=== PATIENT | male | born 1995 | race Caucasian/White ===

== ENCOUNTER 2016-11-20 08:45 | Inpatient (IN) | payer OTHER ==
[~2016-11-20] VITALS: Ht 182.9 cm; Wt 72.6 kg
--- NOTE | 2016-11-20 16:16 | NUR ---
pre-assessment: assessed pt in intake office pt is in acute withdrawal, pt's V/S WNL. Pt is able to give consent and verbalized understanding of unit protocols and procedures.
[2016-11-20] MEDS ORDERED: ONDANSETRON 4 MG/2 ML VIAL IM PRN (16:30)
[2016-11-20] MEDS ORDERED: LOPERAMIDE HCL 2 MG CAPSULE PO PRN ×2 (16:30)
[2016-11-20] MEDS ORDERED: LORAZEPAM 2 MG/1 ML VIAL IM PRN (16:30)
[2016-11-20] MEDS ORDERED: METHOCARBAMOL 750 MG TABLET PO PRN (16:30)
[2016-11-20] MEDS ORDERED: ONDANSETRON ODT 4 MG TAB.RAPDIS SL PRN (16:30)
[2016-11-20] MEDS ORDERED: MAG HYDROX/AL HYDROX/SIMETH 30 ML LIQUID UDC PO PRN (16:30)
[2016-11-20] MEDS ORDERED: ACETAMINOPHEN 325 MG TABLET PO PRN (16:30)
[2016-11-20] MEDS ORDERED: MIRALAX 17 GM POWD.PACK PO PRN (16:30)
[2016-11-20] MEDS ORDERED: THIAMINE HCL 200 MG/2 ML VIAL IM ONE (16:30)
[2016-11-20] MEDS ORDERED: LORAZEPAM 1 MG TABLET PO PRN ×2 (16:30)
[2016-11-20] MEDS ORDERED: diphenhydrAMINE 50 MG CAPSULE PO PRN (16:30)
[2016-11-20] MEDS ORDERED: DICYCLOMINE HCL 20 MG TABLET PO PRN (16:30)
[2016-11-20] MEDS ORDERED: MAGNESIUM HYDROXIDE 30 ML LIQUID UDC PO PRN (16:30)
[2016-11-20] MEDS ORDERED: BUPRENORPHINE HCL 2 MG TAB.SUBL SL PRN (16:30)
--- NOTE | 2016-11-20 16:30 | NUR ---
admission note: Pt is a 21 yo male who arrived on the [facility] at 1630 for medically supervised detox. He is A&O x4 and ambulatory with a steady gait. He reports NKA, is full code status, and on a regular diet. pt is mildly withdrawing for opiate and etoh. pt is able to answer all questions appropriately. He appears anxious and fidgety but is cooperative. Vital signs on the unit are B/P 134/73, HR 77, RR 16, O2 sat 96%, and T 96.6, body aches verbalized. Pt is 6 ft and weighs 160. He has a PMH of anxiety,depression and hep C. History of Use 1.) hard alcohol 1/5 of a bottle a day for 3 months . 2.) heroin via IV 1.5 grams a day for 6 months This is the patient's 3rd time in treatment he was at [facility] 1 year ago for 30 days and [facility] 2013 and 2014 for 30 days each time. He smokes 1 pack to half a pack of cigarettes a day. pt verbalized he has no PCP at this time.
[2016-11-20 17:34] LABS: *AMPHETAMINE, URINE NEGATIVE (NEGATIVE); *BARBITURATE, URINE NEGATIVE (NEGATIVE); *CANNABINOID, URINE POSITIVE (NEGATIVE); *COCCAINE, URINE NEGATIVE (NEGATIVE); *OPIATE, URINE POSITIVE (NEGATIVE); *PHENCYCLIDINE SCREEN,URINE NEGATIVE (NEGATIVE)
[2016-11-20 18:00] LABS: BASOPHILS # (AUTO) 0.1 K/uL (0.0-8.0); BASOPHILS % (AUTO) 1.1 % (0.0-2.0); EOSINOPHILS # (AUTO) 0.4 K/uL (0.0-0.7); EOSINOPHILS % (AUTO) 3.8 % (0.0-7.0); HEMATOCRIT 44.4 % (40-50); HEMOGLOBIN 14.7 G/DL (14.0-18.0); LYMPHOCYTES # (AUTO) 3.4 K/UL (0.8-4.8); LYMPHOCYTES % (AUTO) 31.7 % (20.5-51.5); MEAN CORPUSCULAR HEMOGLOBIN 28.3 UUG (27.0-31.0); MEAN CORPUSCULAR HGB CONC 33 g/dL (32.0-37.0); MEAN CORPUSCULAR VOLUME 85.4 FL (82.0-92.0); MONOCYTES # (AUTO) 0.9 K/UL (0.1-1.30); MONOCYTES % (AUTO) 8.2 % (0.0-11.0); NEUTROPHILS # (AUTO) 5.8 K/UL (1.8-8.9); NEUTROPHILS % (AUTO) 55.2 % (38.5-71.5); PLATELET COUNT (AUTO) 231 K/UL (150-450); RED BLOOD CELL COUNT(AUTO) 5.19 MIL/UL (4.7-6.1); WHITE BLOOD COUNT (AUTO) 10.6 K/UL (4.0-11.2)
[2016-11-20 18:25] LABS: ETHANOL < 3 MG/DL (0-0)
[2016-11-20 18:31] LABS: ALANINE AMINOTRANSFERASE 50 U/L (16-63); ALKALINE PHOSPHATASE 115 U/L (50-136); AMYLASE 65 U/L (25-115); ASPARTATE AMINOTRANSFERASE 36 U/L (15-37); BILIRUBIN,TOTAL 0.2 mg/dL (0.2-1.0); CARBON DIOXIDE 34 mmol/L (21-32); CHLORIDE 103 mmol/L (98-107); GLUCOSE 106 mg/dL (74-106); LIPASE 295 U/L (73-393); MAGNESIUM 1.7 mg/dL (1.8-2.4); TOTAL PROTEIN, SERUM 7.1 g/dL (6.4-8.2); UREA NITROGEN, BLOOD 22 mg/dL (7-18)
--- NOTE | 2016-11-20 19:04 | NUR ---
end of shift note: pt is sleeping in bed at this time, pt is admitted to [facility] for opiate and etoh withdrawal/dependence. pts last cows 9 and ciwa 4. offered medications to pt, pt stated he just wanted to sleep. refused b12 injection. endorsed to shift engineer nurse regarding open wound on his hand and that pictured need to be taken d/t pt sleeping. pt's taper will start tomorrow. will endorse pt to shift engineer nurse.
[2016-11-20 20:00] VITALS: BP 134/93
--- NOTE | 2016-11-20 20:00 | NUR ---
1999 Patient received sleeping comfortably. Aroused for vital signs and nurse assess. Patient responds to nurse's greeting and introduction with brief eye contact and flat " Hi, I'm okay. How are you?" Patient is oriented to person, place, day and his personal situation. Reoriented to date and time. Patient's color is tannish-pink and his skin is warm, dry and intact. Patient's overall appearance is disheveled. Numerous, small pink-red, roundish, intact areas noted on bilateral hands with one tiny area area noted open but dry on left pinky knuckle area. Patient denies any pain or other discomforts at this time. Patient states that he has eaten some of his regular diet tray this PM and he is taking various fluids ad anila with no gastric issues thus far. Patient did not attend [facility] tonight. Vital signs are: 98.4-54-16 134/93, O2 Sat 97%, COWS 8, CIWA 5. Patient voices no requests for anything at this time. Patient was admitted today, 11/20/16, for Alcohol and Heroin withdrawal and he will begin a 5-Day Ativan medication taper and a 5-Day Subutex medication taper on 11/21/16 for withdrawal symptoms. Patient is cooperative and verbally appropriate when interacting with nurse, however mood/affect is somewhat withdrawn and flat. Bed is locked and in lowest position, bed rails are up X 2 and call light within patient's easy reach.
[2016-11-20] MEDS: GABAPENTIN 300 MG CAPSULE PO SCH (21:19)
--- NOTE | 2016-11-20 21:19 | NUR ---
PRN MEDICATIONS: Prn Ativan 1 mg p.o. given per c/o 'feeling bad', with skin temperature flashes, shakes, anxiety, CIWA 5 and Prn Benadryl 50 mg p.o. given per request for sleep medication.
[2016-11-20] MEDS: CLONIDINE HCL 0.1 MG TABLET PO PRN (21:20)
--- NOTE | 2016-11-20 21:20 | NUR ---
PRN MEDICATION: Prn Catapres 0.1 mg p.o. given per c/o anxiety and increasing agitation.
--- NOTE | 2016-11-20 22:20 | NUR ---
REASSESSMENT PRN MEDICATIONS: Patient is sleeping soundly with eyes closed and respirations quiet, deep, even, unlabored at 12.
[2016-11-21] VITALS: BP 119/83
[2016-11-21 04:00] VITALS: BP 135/83
--- NOTE | 2016-11-21 06:30 | NUR ---
0630 Patient slept a total of 9.5 hours and he had 1 voids and no stools. Total intake was 650 ml p.o. Prn medications given noted separately per floor protocol. V/SS afebrile, last COWS 2, last CIWA 1 at 0400. Patient is presently sleeping comfortably in stable condition with eyes closed and respirations quiet, even, unlabored at 12.
--- NOTE | 2016-11-21 07:05 | NUR ---
Patient sleeping soundly and not awakened for COWS, CIWA assessment, as assessments to be done Q 4hs while awake per D.O.
--- NOTE | 2016-11-21 07:55 | NUR ---
Start of Shift Environmental Health Safety Engineer received report on 21 year old male pt admitted on 11/20/16 for ETOH and Heroin detoxification. Pt has NKA, is a full code and on a regular diet. Reported PMH of Hep C, anxiety and depression. Pt also reports a history of seizures with last reported seizure one year ago. Pt received Benadryl, Clonidine and Ativan as PRN medications per NOC nurse. Pt has been placed on seizure and fall precautions. Pt placed on 5 day Ativan and 5 day Subutex tapers. Pts last COWS of 2 and CIWA of 1 were recorded at 0400. Environmental Health Safety Engineer encounters pt resting in bed with eyes closed. Respirations are even and unlabored with rise and fall of chest noted. Bed in low position, wheels locked, side rails up x2 and call light within reach. All safety measures in place according to hospital policy.
[2016-11-21 08:54] VITALS: BP 135/95
[2016-11-21] MEDS ORDERED: 5 DAY TAPER OF LORAZEPAM -SERENITY PROTOCOL PO PRN (09:00)
[2016-11-21] MEDS ORDERED: TUBERCULIN,PURIF.PROT.DERIV. 5 TU/0.1 ML TEST ID ONE (09:00)
[2016-11-21] MEDS ORDERED: 5 DAY TAPER BUPRENORPHINE -SERENITY PROTOCOL SL PRN (09:00)
[2016-11-21] MEDS: GABAPENTIN 300 MG CAPSULE PO SCH ×3 (09:02→20:49)
[2016-11-21] MEDS: DOCUSATE SODIUM 250 MG CAPSULE PO SCH (09:02)
[2016-11-21] MEDS: LORAZEPAM 1 MG TABLET PO SCH ×4 (09:02→20:48)
[2016-11-21] MEDS: FOLIC ACID 1 MG TABLET PO SCH (09:02)
[2016-11-21] MEDS: MULTIVITAMINS,THERAPEUTIC TABLET PO SCH (09:02)
[2016-11-21] MEDS: BUPRENORPHINE HCL 2 MG TAB.SUBL SL SCH ×4 (09:03→20:49)
[2016-11-21] MEDS: THIAMINE HCL 100 MG TABLET PO SCH (09:03)
--- NOTE | 2016-11-21 10:10 | NUR ---
Transfer of Care Internet Marketing Analyst provided report to day shift nurse whom is assuming care of pt. Pt is calm and cooperative, stable and able to make his needs known.
--- NOTE | 2016-11-21 10:11 | NUR ---
Received CARE All pertinent information discussed and care received from nurse in charge.
[2016-11-21 12:00] VITALS: BP 127/93
[2016-11-21 16:00] VITALS: BP 113/91
[2016-11-21] MEDS: IBUPROFEN 600 MG TABLET PO PRN (16:04)
--- NOTE | 2016-11-21 16:04 | NUR ---
PRN MOTRIN Pt c/o of tooth aches 07/24, non pharmacological intervention ineffective. Administered PRN Motrin 600mg Po as ordered. Will cont to monitor and reassess.
--- NOTE | 2016-11-21 17:04 | NUR ---
REASSESSMENT Pt reported medication effective, pain decreased to 1/10.
[2016-11-21] MEDS ORDERED: MAGNESIUM OXIDE 400 MG TABLET PO ONE (17:45)
--- NOTE | 2016-11-21 18:18 | NUR ---
MAGNESIUM REPLACED Pt noted with low magnesium level 1.7L, Which was replaced with 400 mg mag-ox as ordered.
[2016-11-21] MEDS: CLONIDINE HCL 0.1 MG TABLET PO PRN (18:30)
--- NOTE | 2016-11-21 18:30 | NUR ---
PRN CLONIDINE Pt c/o of anxiety agitation, sweats. Administered PRN Clonidine 0.1 mg Po as ordered. Will cont to monitor and reassess.
--- NOTE | 2016-11-21 19:06 | NUR ---
END OF SHIFT NOTE Endorsed Pt to night shift supervisor nurse. Patient is AOX4. 21 year old male pt admitted on 11/20/16 for ETOH and Heroin detoxification. Pt has NKA, is a full code and on a regular diet. Pt reported PMH of Hep C,anxiety and depression. Pt also reports a history of seizures with last reported seizure one year ago. Pt received PRN Motrin/Clonidine effective. Vital signs remained stable. Pt remained compliant with plan of care. Patient encouraged to attend group therapies/sessions to learn new coping skills to prevent relapse, patient denies SI/HI. Pt remained compliant with plan of care. Fall and seizure precautions observed at all times, all needs met and rendered, Safety measures in place. Call light kept within reach. Patient endorsed to night shift supervisor nurse, all pertinent information discussed. Patient endorsed to night shift supervisor nurse in stable condition.
--- NOTE | 2016-11-21 19:21 | NUR ---
REASSESSMENT Pt reported medication effective anxiety/agitation subside and sweats decreased.
[2016-11-21 20:00] VITALS: BP 129/85
--- NOTE | 2016-11-21 20:00 | NUR ---
1999 Patient was received awake, alert and just [id number]. Gait is steady, brisk. Patient is oriented to person, place, day, date, time and personal situation. Patient's color is pink and his skin is warm, dry and intact. Patient denies any pain or other discomforts and he voices no requests for anything at this time. Patient states that he is eating his regular diet trays and taking various fluids ad anila with no gastric issues. Patient states further that he has started attending [employer] groups today. Vital signs are: 98.1-92-20 129/85, O2 Sat 99%, COWS 8 CIWA 7 . Patient was admitted on 11/20/16 for Alcohol and Heroin withdrawal and he has been started on a 5-Day Ativan medication taper and a 5-Day Subutex medication taper today, 11/21/16, both of which he is tolerating well so far. Patient is cooperative and verbally appropriate when interacting with nurse, though mood/affect both slightly anxious and flat at the same time. Bed is locked and in lowest position, bed rails are up X 1 and call light within patient's easy reach.
[2016-11-21] MEDS: MIRTAZAPINE 15 MG TABLET PO SCH (20:49)
[2016-11-22] VITALS (7 sets, daily range): BP systolic 109–140; BP diastolic 66–92
--- NOTE | 2016-11-22 06:30 | NUR ---
0630 Patient slept a total of 8.5 hours and he had 2 voids and 1 stools. Total intake was 1,435 ml p.o. Patient had no Prn medications given to him this shift. V/SS afebrile, last COWS 1, last CIWA 1 at 0400. Patient is presently sleeping comfortably in stable condition, with eyes closed and respirations quiet, even, unlabored at 12.
--- NOTE | 2016-11-22 07:05 | NUR ---
Patient is sleeping soundly with eyes closed and respirations even, unlabored at 12. Not awakened for COWS, CIWA assess.
[2016-11-22 07:50] LABS: BASOPHILS # (AUTO) 0.1 K/uL (0.0-8.0); BASOPHILS % (AUTO) 1.5 % (0.0-2.0); EOSINOPHILS # (AUTO) 0.4 K/uL (0.0-0.7); EOSINOPHILS % (AUTO) 4.4 % (0.0-7.0); HEMATOCRIT 45.6 % (40-50); HEMOGLOBIN 15.3 G/DL (14.0-18.0); LYMPHOCYTES % (AUTO) 44.3 % (20.5-51.5); MEAN CORPUSCULAR HEMOGLOBIN 29.3 UUG (27.0-31.0); MEAN CORPUSCULAR HGB CONC 34 g/dL (32.0-37.0); MONOCYTES # (AUTO) 0.9 K/UL (0.1-1.30); NEUTROPHILS # (AUTO) 3.6 K/UL (1.8-8.9); NEUTROPHILS % (AUTO) 39.8 % (38.5-71.5); PLATELET COUNT (AUTO) 224 K/UL (150-450); RED BLOOD CELL COUNT(AUTO) 5.24 MIL/UL (4.7-6.1)
--- NOTE | 2016-11-22 08:00 | NUR ---
START OF SHIFT: RECEIVED PT A/O X 4. PT PRESENTS WITH GUARDED AFFECT AND ANXIOUS MOOD. HE REPORTS ANXIETY,CHILLS,BODY ACHES,SHAKES,SWEATS AND RESTLESSNESS. COWS 9 CIWA 6. ATIVAN/SUBUTEX TAPER IN PROGRESS TO MANAGE S/S OF W/D. ENCOURAGED INCREASED FLUIDS TO ASSIST IN FACILITATING DETOX PROCESS. SZ PRECAUTIONS IN PLACE. WILL CONTINUE TO MONITOR AND PROVIDE SAFE AND SUPPORTIVE ENVIRONMENT.
[2016-11-22] MEDS: DOCUSATE SODIUM 250 MG CAPSULE PO SCH (09:12)
[2016-11-22] MEDS: GABAPENTIN 300 MG CAPSULE PO SCH ×3 (09:13→20:14)
[2016-11-22] MEDS: LORAZEPAM 1 MG TABLET PO SCH ×3 (09:13→20:15)
[2016-11-22] MEDS: FOLIC ACID 1 MG TABLET PO SCH (09:13)
[2016-11-22] MEDS: MULTIVITAMINS,THERAPEUTIC TABLET PO SCH (09:14)
[2016-11-22] MEDS: THIAMINE HCL 100 MG TABLET PO SCH (09:14)
[2016-11-22] MEDS: BUPRENORPHINE HCL 2 MG TAB.SUBL SL SCH ×3 (09:15→20:13)
[2016-11-22 10:10] LABS: HEPATITIS B SURFACE AG Negative (Negative)
[2016-11-22] MEDS: IBUPROFEN 600 MG TABLET PO PRN ×2 (15:32→22:32)
--- NOTE | 2016-11-22 15:35 | NUR ---
PRN MOTRIN GIVEN FOR REPORTED H/A 11/23. WILL MONITOR EFFECTIVENESS OF MEDICATIONS.
--- NOTE | 2016-11-22 16:35 | NUR ---
PT STATES THE MOTRIN WAS EFFECTIVE. HE REPORTS H/A 2/10 ON SCALE.
--- NOTE | 2016-11-22 18:23 | NUR ---
END OF SHIFT: PT REPORTED SOME DISCOMFORT INTERMITTENTLY THROUGHOUT SHIFT AND STATES THE DETOX MEDS ARE EFFECTIVE. ATIVAN/SUBUTEX TAPER IN PROGRESS. LAST COWS 6 CIWA 3. FINE TREMORS NOTED TO HANDS AND HE REPORTS SOME BODY ACHES ,CHILLS AND SWEATS. SZ PRECAUTIONS NOTED. HE WAS COMPLIANT WITH INCREASED FLUIDS AND HE RESTED ON AND OFF TODAY. WILL PASS SHIFT REPORT TO ONCOMING NIGHT NURSE.
--- NOTE | 2016-11-22 19:45 | NUR ---
Start of Shift Note: Report received: pt is a 21yo male admitted on 11/20/16 for medically-supervised withdrawal from ETOH and opiates. Pt reports using 1.5gm IV heroin daily for 5 months and drinking 750ml ETOH daily for 3 months. Pt is on 5-day Ativan and Subutex tapers. NKA, full code status, regular diet. Pt received with last COWS=6/CIWA=3, and PRN Motrin was given during day shift. Pt received in room, and requests scheduled medications as early as possible d/t withdrawal s/s. Pt reports anxiety, agitation, diaphoresis, generalized pain, tremor, and noted with runny nose. All safety precautions are in place: bed is in low position and locked, side rails up x2, call light within reach. Will continue to monitor.
[2016-11-22] MEDS: MIRTAZAPINE 15 MG TABLET PO SCH (20:14)
[2016-11-22] MEDS: MAGNESIUM OXIDE 400 MG TABLET PO SCH (20:15)
[2016-11-22] MEDS: CLONIDINE HCL 0.1 MG TABLET PO PRN (22:32)
--- NOTE | 2016-11-22 22:32 | NUR ---
PRN Motrin and PRN Clonidine: Patient complains of headache, rates pain 6/10. Administered PRN Motrin as ordered. Patient complains of anxiety. Administered PRN Clonidine as ordered. BP is 140/92, HR is 87. Will continue to monitor.
--- NOTE | 2016-11-22 23:35 | NUR ---
PRN Reassessment: Patient is in bed with eyes closed. Respirations are even and unlabored. No s/s of acute distress noted. PRN Motrin and PRN clonidine effective AEB patient's ability to rest. Will continue to monitor.
[2016-11-23] VITALS: BP 120/52
--- NOTE | 2016-11-23 | NUR ---
COWS/CIWA Deferred: COWS and CIWA are deferred for sleep. V/S stable. All safety precautions are in place. Will continue to monitor.
[2016-11-23 04:00] VITALS: BP 118/56
--- NOTE | 2016-11-23 04:00 | NUR ---
COWS/CIWA Deferred: COWS and CIWA are deferred for sleep. V/S stable. All safety precautions are in place. Will continue to monitor. Addendum: 11/23/16 at 0523 by BELIA PAUL RN Amended: Links added.
--- NOTE | 2016-11-23 06:58 | NUR ---
End of Shift Note: Pt is a 21yo male admitted to [facility] on 11/20/2016 for medically-supervised withdrawal from ETOH and opiates. Pt reported drinking 750ml of ETOH daily for 3 months and using 1.5gm IV heroin daily for 5 months and was placed on 5-day Ativan and Subutex tapers. Scheduled medication regime managed s/s of withdrawal, in addition to PRN Motrin for headache and PRN Catapres for anxiety. Last COWS=10/CIWA=7 at 20:00. V/S stable throughout shift. Total fluid intake: 1000 ml; output: urine x 2, BM x 1. Pt is currently in bed and slept 7 hours this shift. All needs have been attended and met. Bed is in low position and locked, side rails up x2, call light within reach. Will continue to monitor.
[2016-11-23 08:00] VITALS: BP 104/61
--- NOTE | 2016-11-23 08:05 | NUR ---
START OF SHIFT: RECEIVED PT A/O X 4. PT PRESENTS WITH BLUNTED AFFECT AND DEPRESSED MOOD. HE REPORTS ANXIETY , BODY ACHES, STUFFY NOSE AND FATIGUE. COWS 6 CIWA 2. ATIVAN/SUBUTEX TAPER IN PROGRESS TO MANAGE S/S OF W/D. ENCOURAGED INCREASED FLUIDS TO ASSIST IN FACILITATING DETOX PROCESS. SZ PRECAUTIONS NOTED. ENCOURAGED GROUP ATTENDANCE TO IMPROVE COPING SKILLS AND PREVENT RELAPSE. WILL CONTINUE TO MONITOR AND OFFER SUPPORT.
[2016-11-23] MEDS ORDERED: BUPRENORPHINE HCL 2 MG TAB.SUBL SL SCH (09:00)
[2016-11-23] MEDS ORDERED: MAGNESIUM OXIDE 400 MG TABLET PO ONE (09:00)
[2016-11-23] MEDS: GABAPENTIN 300 MG CAPSULE PO SCH ×3 (09:21→20:24)
[2016-11-23] MEDS: FOLIC ACID 1 MG TABLET PO SCH (09:21)
[2016-11-23] MEDS: MULTIVITAMINS,THERAPEUTIC TABLET PO SCH (09:21)
[2016-11-23] MEDS: DOCUSATE SODIUM 250 MG CAPSULE PO SCH (09:21)
[2016-11-23] MEDS: THIAMINE HCL 100 MG TABLET PO SCH (09:21)
[2016-11-23] MEDS: LORAZEPAM 1 MG TABLET PO SCH ×4 (09:21→20:24)
[2016-11-23 12:00] VITALS: BP 125/74
[2016-11-23] MEDS: BUPRENORPHINE HCL 2 MG TAB.SUBL SL SCH ×2 (14:48→20:25)
[2016-11-23 16:00] VITALS: BP 130/95
[2016-11-23] MEDS: IBUPROFEN 600 MG TABLET PO PRN (16:39)
--- NOTE | 2016-11-23 16:39 | NUR ---
Pt c/o body aches and tooth ache 10/23. Facial grimacing is observed. Motrin 600mg PO PRN was given as ordered. Encouraged increase fluid intake.
--- NOTE | 2016-11-23 17:40 | NUR ---
PT STATES THE MOTRIN WAS EFFECTIVE. PAIN 2/10 ON SCALE.
--- NOTE | 2016-11-23 18:30 | NUR ---
END OF SHIFT: PT REPORTED SOME ANXIETY AND BODY ACHES AND SWEATS AND STATES THE DETOX MEDS ARE EFFECTIVE. ATIVAN/SUBUTEX TAPER IN PROGRESS. LAST COWS 6 CIWA 3. SZ PRECAUTIONS NOTED. HE ATTENDED GROUPS.NO PRNS GIVEN ON THIS SHIFT. WILL PASS SHIFT REPORT TO [facility] NIGHT NURSE. Addendum: 11/23/16 at 1844 by JUNO MENDOZA RN MOTRIN GIVEN PRN AND EFFECTIVE FOR TOOTH PAIN.
--- NOTE | 2016-11-23 19:35 | NUR ---
Start of Shift Note Patient endorsement received from Day shift nurse Patient is a 21 year old male admitted on 11-20-16 for opiate and alcohol detox. He is receiving a five day Subutex and Ativan Taper. Last CIWA 3 and COWS 6. He is on fall and seizure precautions. Full code regular diet. Patient with history of Anxiety, depression, Hepatitis C and a Seizure (1 yr ago). Currently mood is depressed but denies SI or HI. Patient currently resting in bed. Bed with 2 side rails up, locked in lowest position with call light within reach.
[2016-11-23 20:00] VITALS: BP 131/75
[2016-11-23] MEDS: MAGNESIUM OXIDE 400 MG TABLET PO SCH (20:24)
[2016-11-23] MEDS: MIRTAZAPINE 15 MG TABLET PO SCH (20:25)
--- NOTE | 2016-11-24 | NUR ---
Vitals refused/COWS/CIWA deferred Patient refused vital signs at midnight "I really need to sleep" COWS/CIWA deferred due to patient sleeping. Breathing regular and even, unlabored with respirations 16.
--- NOTE | 2016-11-24 04:00 | NUR ---
Vitals refused/COWS/CIWA deferred Patient refused vital signs at 0400 "I need to sleep" COWS/CIWA deferred due to patient sleeping. Breathing is even,regular and unlabored with respirations 16.
--- NOTE | 2016-11-24 06:56 | NUR ---
END OF SHIFT NOTE Pt is a 21yo male admitted to [facility] on 11/20/2016 for ETOH and opiate detox. Pt reported drinking 750ml of ETOH daily for 3 months and using 1.5gm IV heroin daily for 5 months. He is currently on day 3 of a 5-day Ativan and Subutex taper. Last COWS=9/CIWA=8. V/S BP 131/75, P 86, T 98.1, R 16, Spo2 95% RA. Total fluid intake: 1835 ml; output: urine x 2, BM x 1. Pt. slept 8 hours this shift. All needs have been attended and met. Bed is in low position and locked, side rails up x2, call light within reach. Will continue to monitor. Endorsement given to AM nurse.
[2016-11-24 08:00] VITALS: BP 129/76
--- NOTE | 2016-11-24 08:00 | NUR ---
START OF SHIFT: RECEIVED PT A/O X 4. PT PRESENTS WITH BLUNTED AFFECT AND DEPRESSED MOOD. HE DENIES S/I AND H/I.HE REPORTS ANXIETY AND BODY ACHES, COWS 4 CIWA 2. ATIVAN/SUBUTEX TAPER IN PROGRESS TO MANAGE S/S OF W/D. SZ PRECAUTIONS NOTED. ENCOURAGED GROUP ATTENDANCE TO IMPROVE COPING SKILLS AND PREVENT RELAPSE. WILL CONTINUE TO MONITOR AND OFFER SUPPORT.
[2016-11-24] MEDS: FOLIC ACID 1 MG TABLET PO SCH (08:43)
[2016-11-24] MEDS: THIAMINE HCL 100 MG TABLET PO SCH (08:43)
[2016-11-24] MEDS: GABAPENTIN 300 MG CAPSULE PO SCH ×3 (08:43→20:45)
[2016-11-24] MEDS: LORAZEPAM 1 MG TABLET PO SCH ×3 (08:43→20:46)
[2016-11-24] MEDS: DOCUSATE SODIUM 250 MG CAPSULE PO SCH (08:43)
[2016-11-24] MEDS: MULTIVITAMINS,THERAPEUTIC TABLET PO SCH (08:43)
[2016-11-24] MEDS: BUPRENORPHINE HCL 2 MG TAB.SUBL SL SCH ×3 (08:44→20:45)
[2016-11-24 12:00] VITALS: BP 159/102
--- NOTE | 2016-11-24 12:10 | NUR ---
PRN CLONIDINE GIVEN FOR REPORTED SWEATS ,CHILLS AND ANXIETY. WILL MONITOR EFFECTIVENESS.
[2016-11-24] MEDS: CLONIDINE HCL 0.1 MG TABLET PO PRN (12:20)
--- NOTE | 2016-11-24 13:10 | NUR ---
PRN CLONIDINE WAS EFFECTIVE. PT STATES HE FEELS BETTER.
[2016-11-24 16:00] VITALS: BP 144/93
[2016-11-24] MEDS: IBUPROFEN 600 MG TABLET PO PRN (16:45)
--- NOTE | 2016-11-24 16:45 | NUR ---
PT REPORTS H/A 5/10 ON PAIN SCALE. MOTRIN GIVEN . WILL MONITOR EFFECTIVENESS.
--- NOTE | 2016-11-24 16:56 | NUR ---
Therapist prompted client to attend daily group sessions at 11am and 3:30pm, and client stated that he would attend.
--- NOTE | 2016-11-24 18:39 | NUR ---
END OF SHIFT: PT REPORTED SOME ANXIETY AND BODY ACHES IN AM AND THEN REPORTED SWEATS AND CHILLS THIS AFTERNOON. PRN CLONIDINE GIVEN AND EFFECTIVE. LATER IN SHIFT PT REPORTED H/A AN MOTRIN WAS GIVEN AND EFFECTIVE. SUBUTEX/ATIVAN TAPER CONTINUES FOR S/S OF W/D. LAST COWS 4 CIWA 2. SZ PRECAUTIONS NOTED. HE ATTENDED SOME GROUPS .HE WAS COMPLIANT WITH INCREASED FLUIDS. [facility]
--- NOTE | 2016-11-24 18:49 | NUR ---
START OF SHIFT NOTE: Patient endorsed by outgoing day shift nurse. Report received. Patient is a 21 year old male admitted to [facility] for Alcohol and Opioid dependence continue 5 Day Ativan and 5 Day Subutex Taper since 11/21/2016 which tolerated well without ASE. Patient reports NKA. Patient is on Full Code, Regular Diet. Patient is on Fall and Seizures Precautions. PMH: Anxiety, Depression, Hepatitis C, Seizures History "1 year ago". Patient reports Substance use History: ETOH: "1/5 every day since Aug, 2016. Last Use 1/5 on 11/19/2016". Heroin via IV: 1.5 gram every day since June,. Last Use 1.5 gram on 11/20/2016". Patient reports Treatment History: "[facility] [place] [facility]": "One year ago for 30 days". "[facility]": "2013 - for 30 days. 2015 - for 30 days". Upon endorsement patient is in the Room alert and oriented x4. Speech is soft and clear. VSWNL. COWS 4, CIWA 2. Patient presented with anxiety, agitation, nervousness, generalized body aches. Patient denies SI/HI. Respiration unlabored and even. Patient denies SOB and chest pain. Lung Sounds are clear bilaterally. Heart Rate is Regular. No murmur noted. Abdomen is Soft. Bowel Sounds active in all four quadrants. Last BM was "today, on 11/24/2016 at 1000". Skin is intact, warm and dry to touch. Patient received PRN Clonidine HCL PO for anxiety at 1220 and PRN Motrin PO for toothache at 1645 per day shift nurse report. PRN Medications were effective. Patient remains compliant with medications, treatment, and diet regime. Patient attended group activities. Encourage increased fluids intake as tolerated. All needs met. Safety measures on place. Call light within reach, bed in lowest position and locked, padded rails up bilaterally. Addendum: 11/24/16 at 2001 by DIONISIO CM RN ETOH: "750 ml every day since Aug, 2016. Last Use 750 ml on 11/19/2016".
[2016-11-24 20:00] VITALS: BP 128/78
[2016-11-24] MEDS: MIRTAZAPINE 15 MG TABLET PO SCH (20:45)
[2016-11-24] MEDS: MAGNESIUM OXIDE 400 MG TABLET PO SCH (20:46)
[2016-11-25] VITALS: BP 145/96
[2016-11-25 04:00] VITALS: BP 143/92
--- NOTE | 2016-11-25 06:51 | NUR ---
END OF SHIFT NOTE: Patient endorsed to day shift nurse in stable condition. Report given. Patient is a 21 year old male admitted to [facility] for Alcohol and Opioid dependence continue 5 Day Ativan and 5 Day Subutex Taper since 11/21/2016 which tolerated well without ASE. Patient reports NKA. Patient is on Full Code, Regular Diet. Patient is on Fall and Seizures Precautions. PMH: Anxiety, Depression, Hepatitis C, Seizures History "1 year ago". PMH: anxiety, depression, and substance abuse. VS WNL. Respirations unlabored and even. Patient denies SOB and chest pain. Skin is intact, warm and dry to touch. Last COWS 4, CIWA 3 at 0400. Last night patient presented with anxiety, agitation, nervousness, tremors, barely sweating, restless legs, mild headache, body aches, and fatigue. Patient denies SI/HI. Encouraged fluids as tolerated. No PRN Medications given last cook night. Patient slept 4 hour 30 minutes, intake 592 ml, voided x1. All needs met. Safety measures on place. Call light within reach, bed in lowest position and locked, padded rails up bilaterally.
--- NOTE | 2016-11-25 07:40 | NUR ---
START OF SHIFT NOTE Received patient this Am Aox4. Patient states he feels "alright." Patient on 5 day Ativan/5 day Subutex taper. No PRNs given during night nurse. He slept 4 hours. Last CIWA 3 COWS 4 per night nurse. Encouraged patient to attend groups and activities. Encouraged patient to increase fluid intake to facilitate detox. Encouraged pt to notify RN if S/S of W/D worsen. Will monitor closely and offer help.
[2016-11-25 08:00] VITALS: BP 145/89
[2016-11-25] MEDS: DOCUSATE SODIUM 250 MG CAPSULE PO SCH (08:53)
[2016-11-25] MEDS: MULTIVITAMINS,THERAPEUTIC TABLET PO SCH (08:53)
[2016-11-25] MEDS: FOLIC ACID 1 MG TABLET PO SCH (08:53)
[2016-11-25] MEDS: GABAPENTIN 300 MG CAPSULE PO SCH ×3 (08:53→20:16)
[2016-11-25] MEDS: LORAZEPAM 1 MG TABLET PO SCH ×2 (08:53→20:16)
[2016-11-25] MEDS: THIAMINE HCL 100 MG TABLET PO SCH (08:54)
[2016-11-25] MEDS ORDERED: BUPRENORPHINE HCL 2 MG TAB.SUBL SL SCH (09:00)
[2016-11-25 12:00] VITALS: BP 148/93
[2016-11-25 16:00] VITALS: BP 140/65
--- NOTE | 2016-11-25 16:05 | NUR ---
Therapist prompted client about group times. Client said he did not want to go because he wants to sleep.
[2016-11-25] MEDS ORDERED: HYDROXYZINE PAMOATE 25 MG CAPSULE PO PRN (17:45)
--- NOTE | 2016-11-25 18:33 | NUR ---
END OF SHIFT NOTE Patient continued on 5 day Ativan /5 Day Subutex taper and tolerating well. No PRNs given during shift as detox medications are effective. Patient isolated self in room during shift. He did not attend groups or activities. Vital signs stable. Seizure precautions in place. Last COWS 5 CIWA 5. All needs met. All safety measures in place. Will endorse to night nurse.
--- NOTE | 2016-11-25 18:53 | NUR ---
START OF SHIFT NOTE: Patient endorsed by outgoing day shift nurse. Report received. Patient is a 21 year old male admitted to [facility] for Alcohol and Opioid dependence continue 5 Day Ativan and 5 Day Subutex Taper since 11/21/2016 which tolerated well without ASE. Patient reports NKA. Patient is on Full Code, Regular Diet. Patient is on Fall and Seizures Precautions. Upon endorsement patient is in the Room alert and oriented x4. Speech is soft and clear. VSWNL. COWS 5, CIWA 5. Patient presented with anxiety, agitation, nervousness, stomach cramps, nasal stuffy, tears, generalized body aches, tremors, and restlessness. Patient denies SI/HI. Respiration unlabored and even. Patient denies SOB and chest pain. Lung Sounds are clear bilaterally. Heart Rate is Regular. No murmur noted. Abdomen is Soft. Bowel Sounds active in all four quadrants. Last BM was "today, on 11/25/2016 at 1100". Skin is intact, warm and dry to touch. Patient received PRN Clonidine HCL PO for anxiety at 1220 and PRN Motrin PO for toothache at 1645 per day shift nurse report. PRN Medications were effective. Patient remains compliant with medications, treatment, and diet regime. Encourage to attend groups activities. Encourage increased fluids intake as tolerated. All needs met. Safety measures on place. Call light within reach, bed in lowest position and locked, padded rails up bilaterally.
[2016-11-25 20:00] VITALS: BP 142/93
[2016-11-25] MEDS: CLONIDINE HCL 0.1 MG TABLET PO SCH (20:16)
[2016-11-25] MEDS: BUPRENORPHINE HCL 2 MG TAB.SUBL SL SCH (20:16)
[2016-11-25] MEDS: MAGNESIUM OXIDE 400 MG TABLET PO SCH (20:16)
[2016-11-25] MEDS: MIRTAZAPINE 15 MG TABLET PO SCH (20:17)
[2016-11-26] VITALS: BP 130/84
[2016-11-26 04:00] VITALS: BP 101/53
--- NOTE | 2016-11-26 06:53 | NUR ---
END OF SHIFT NOTE: Patient endorsed to day shift nurse in stable condition. Report given. Patient is a 21 year old male admitted to [facility] for Alcohol and Opioid dependence continue 5 Day Ativan and 5 Day Subutex Taper since 11/21/2016 which tolerated well without ASE. Patient reports NKA. Patient is on Full Code, Regular Diet. Patient is on Fall and Seizures Precautions. PMH: Anxiety, Depression, Hepatitis C, Seizures History "1 year ago. PMH: anxiety, depression, and substance abuse. VS WNL. Respirations unlabored and even. Patient denies SOB and chest pain. Skin is intact, warm and dry to touch.. Last COWS 4, CIWA 3 at 0400. Last night patient presented with anxiety, agitation, nervousness, tremors, barely sweating, restless legs, mild headache, body aches, and fatigue. Patient denies SI/HI. Encouraged fluids as tolerated. No PRN Medications given last power and recovery shift engineer. Patient slept 4 hour 30 minutes, intake 592 ml, voided x1. All needs met. Safety measures on place. Call light within reach, bed in lowest position and locked, padded rails up bilaterally.
[2016-11-26 08:00] VITALS: BP 123/80
--- NOTE | 2016-11-26 08:05 | NUR ---
START OF SHIFT NOTE Received patient this Am Aox4. Patient states he feels good and he slept ok. He presents with flat affect and depressed mood. Patient on 5 day Ativan/5 day Subutex taper. No PRNs given during night nurse. He slept 6 hours. Last CIWA 2 COWS 3 at 0800 this AM. Encouraged patient to attend groups and activities. Encouraged patient to increase fluid intake to facilitate detox. Encouraged pt to notify RN if S/S of W/D worsen. Will monitor closely and offer help.
[2016-11-26] MEDS: GABAPENTIN 300 MG CAPSULE PO SCH ×3 (08:17→20:43)
[2016-11-26] MEDS: BUPRENORPHINE HCL 2 MG TAB.SUBL SL SCH (08:17)
[2016-11-26] MEDS: CLONIDINE HCL 0.1 MG TABLET PO SCH (08:18)
[2016-11-26] MEDS: FOLIC ACID 1 MG TABLET PO SCH (08:18)
[2016-11-26] MEDS: THIAMINE HCL 100 MG TABLET PO SCH (08:18)
[2016-11-26] MEDS: MULTIVITAMINS,THERAPEUTIC TABLET PO SCH (08:18)
[2016-11-26 12:00] VITALS: BP 138/80
[2016-11-26 12:26] LABS: *AMPHETAMINE, URINE NEGATIVE (NEGATIVE); *BARBITURATE, URINE NEGATIVE (NEGATIVE); *CANNABINOID, URINE NEGATIVE (NEGATIVE); *COCCAINE, URINE NEGATIVE (NEGATIVE); *OPIATE, URINE NEGATIVE (NEGATIVE); *PHENCYCLIDINE SCREEN,URINE NEGATIVE (NEGATIVE)
--- NOTE | 2016-11-26 14:36 | NUR ---
Clinician encouraged client to attend group today at 3:30. Client did not commit but did ask for confirmation of the time.
[2016-11-26 16:00] VITALS: BP 127/75
--- NOTE | 2016-11-26 18:34 | NUR ---
END OF SHIFT NOTE Patient completed on 5 day Ativan /5 Day Subutex taper. No PRNs given during shift as detox medications are effective. Patient presented with brighter mood and affect during shift. He did not attend groups or activities. Vital signs stable. Seizure precautions in place. Last COWS 2 CIWA 1. All needs met. All safety measures in place. Will endorse to night nurse.
--- NOTE | 2016-11-26 19:25 | NUR ---
Start of Shift Patient received. Patient is in activities room participating in group meeting. Patient is a 21 year old male admitted on 11/20/16 for Opiate and ETOH Dependence under the care of Dr. Ugarte. Patient has completed a 5 day Ativan and 5 day Subutex taper. Patient verbalizes no known allergies, wishes to be full code, following a regular diet, placed on fall and seizure precautions, skin noted intact. Patients past medical history noted as Anxiety, depression and Hep C+. Per endorsement, Patient is set for discharge tomorrow 11/27/16. No PRN Medications administered. Last noted COWS 2 and CIWA 1. All needs attended to promptly. Will continue plan of care as ordered.
[2016-11-26] MEDS ORDERED: DICY20TA28 PO (20:10)
[2016-11-26] MEDS ORDERED: MIRT15TA7 PO (20:10)
[2016-11-26] MEDS ORDERED: GABA-534 PO (20:10)
[2016-11-26] MEDS ORDERED: HYDR-3895 PO (20:10)
[2016-11-26] MEDS ORDERED: METH-406 PO (20:10)
[2016-11-26] MEDS ORDERED: CLON0.1T14 PO (20:10)
[2016-11-26] MEDS ORDERED: IBUP-1955 PO (20:10)
[2016-11-26 20:35] VITALS: BP 134/85
[2016-11-26] MEDS: MIRTAZAPINE 15 MG TABLET PO SCH (20:43)
[2016-11-26] MEDS: IBUPROFEN 600 MG TABLET PO PRN (20:43)
--- NOTE | 2016-11-26 20:45 | NUR ---
PRN Medication Administration Patient verbalizing increased pain of 5/10 due to headache. PRN Motrin administered as per order. Will continue to monitor for effectiveness of medication.
[2016-11-26] MEDS: CLONIDINE HCL 0.1 MG TABLET PO PRN (21:59)
--- NOTE | 2016-11-26 22:00 | NUR ---
PRN Medication Reassessment/PRN Medication Administration Patient returning from smoking patio and is able to verbalize PRN Motrin was effective in minimizing pain due to headache. Patient is verbalizing increased anxiety and chills. PRN Clonidine administered as per orders. Will continue to monitor.
--- NOTE | 2016-11-26 23:00 | NUR ---
PRN Medication Reassessment/PRN Medication Administration Patient returning from smoking patio and is able to verbalize PRN Motrin was effective in minimizing pain due to headache. Patient is verbalizing increased anxiety and chills. PRN Clonidine administered as per orders. Will continue to monitor. Addendum: 11/26/16 at [id number] by KAREN LO LVN Correction in time. Medication administration at 2200
--- NOTE | 2016-11-26 23:00 | NUR ---
PRN Medication Reassessment Patient noted in bed watching TV. Breathing even and non labored. Patient able to verbalize PRN Clonidine noted to be effective in minimizing anxiety and chills. All needs attended to promptly. will continue to monitor.
[2016-11-27 00:47] VITALS: BP 121/76
[2016-11-27 04:00] VITALS: BP 104/65
--- NOTE | 2016-11-27 07:23 | NUR ---
End of Shift Patient is in bed sleeping. Breathing even and non labored. No signs of pain or discomfort noted. Patient is a 21 year old male admitted on 11/20/16 for Opiate and ETOH Dependence under the care of Dr. Ugarte. Patient has completed a 5 day Ativan and 5 day Subutex taper. Patient verbalizes no known allergies, wishes to be full code, following a regular diet, placed on fall and seizure precautions, skin noted intact. Patients past medical history noted as Anxiety, depression and Hep C+. Patient is set for discharge today 11/27/16. Patient was give PRN Motrin and Clonidine for pain and increased anxiety with medications noted to be effective. All needs attended to promptly. Will endorse to continue plan of care as ordered.
--- NOTE | 2016-11-27 07:52 | NUR ---
START OF SHIFT Received report from night nurse. 21 year old male patient admitted on 11/20/16 for ETOH and Heroin dependence. Pt has completed 5 day Ativan and 5 day Subutex taper and is medically cleared for discharge. Reports history of anxiety, depression and Hep C. PRN Motrin and Clonidine administered and effective. Pt slept for 7 hours. V/S remain WNL. Pt does not present with acute s/s of withdrawal and is ready for discharge. Will continue to monitor.
[2016-11-27 08:26] VITALS: BP 122/73
[2016-11-27] MEDS: MULTIVITAMINS,THERAPEUTIC TABLET PO SCH (08:45)
[2016-11-27] MEDS: THIAMINE HCL 100 MG TABLET PO SCH (08:45)
[2016-11-27] MEDS: FOLIC ACID 1 MG TABLET PO SCH (08:45)
[2016-11-27] MEDS: GABAPENTIN 300 MG CAPSULE PO SCH (08:45)
--- NOTE | 2016-11-27 09:37 | NUR ---
D/C NOTE Pt is A/O x4. V/S remain WNL. Pt denies SI/HI or hallucinations. Pt shows no s/s of acute withdrawal at this time, and is stable. has medically cleared pt for d/c . Education on Hepatitis C, smoking cessation and medication side effects provided. Pt verbalizes understanding. All pt belongings are in belonging bag, including prescriptions, pt did not have any home medications. Refuses PNU vaccination. Pt is being accompanied by CASING MACHINE OPERATOR at this time to be transported to rehab. All needs met.
== END 2016-11-27 09:37 | disposition other institution (70) | DRG 895 ==
LOC: SRC 15:56
PROVIDERS: ADMIT Internal Medicine; ATTEND Internal Medicine
PROC: HZ2ZZZZ Detoxification Services for Substance Abuse Treatment (ICD-10-PCS; principal; 2016-11-20)
PROC: HZ31ZZZ Individual Counseling for Substance Abuse Treatment, Behavioral (ICD-10-PCS; 2016-11-21)
PROC: HZ41ZZZ Group Counseling for Substance Abuse Treatment, Behavioral (ICD-10-PCS; 2016-11-22)
DX: F10.230 Alcohol dependence with withdrawal, uncomplicated (principal); F33.1 Major depressive disorder, recurrent, moderate; E87.3 Alkalosis; F11.23 Opioid dependence with withdrawal; Y90.0 Blood alcohol level of less than 20 mg/100 ml; Z59.0 Homelessness; F17.210 Nicotine dependence, cigarettes, uncomplicated; E83.42 Hypomagnesemia; F41.9 Anxiety disorder, unspecified; Z81.8 Family history of other mental and behavioral disorders; E86.0 Dehydration; I15.9 Secondary hypertension, unspecified; F12.90 Cannabis use, unspecified, uncomplicated; Z20.828 Contact with and (suspected) exposure to other viral communicable diseases
CPT/HCPCS: 36415; 70030-TC; 80307; 80349; 80361; 83690; 83735; 85025; 86592; 86705; 86803; 87340; 87806; A4663; G0480; Q0163

== ENCOUNTER 2017-03-18 20:47 | Inpatient (IN) | payer OTHER ==
[~2017-03-18] VITALS: Ht 182.9 cm; Wt 88.5 kg
[~2017-03-18 20:47] MED LIST: CLON0.1T14 PO; DICY20TA28 PO; GABA-534 PO; HYDR-3895 PO; IBUP-1955 PO; METH-406 PO; MIRT15TA7 PO
[2017-03-18] MEDS ORDERED: MAGNESIUM HYDROXIDE 30 ML LIQUID UDC PO PRN (22:00)
[2017-03-18] MEDS ORDERED: diphenhydrAMINE 50 MG CAPSULE PO PRN (22:00)
[2017-03-18] MEDS ORDERED: CLONIDINE HCL 0.1 MG TABLET PO PRN (22:00)
[2017-03-18] MEDS ORDERED: ONDANSETRON 4 MG/2 ML VIAL IM PRN (22:00)
[2017-03-18] MEDS ORDERED: LORAZEPAM 2 MG/1 ML VIAL IM PRN (22:00)
[2017-03-18] MEDS ORDERED: THIAMINE HCL 200 MG/2 ML VIAL IM ONE (22:00)
[2017-03-18] MEDS ORDERED: LOPERAMIDE HCL 2 MG CAPSULE PO PRN ×2 (22:00)
[2017-03-18] MEDS ORDERED: MAG HYDROX/AL HYDROX/SIMETH 30 ML LIQUID UDC PO PRN (22:00)
[2017-03-18] MEDS ORDERED: DICYCLOMINE HCL 20 MG TABLET PO PRN (22:00)
[2017-03-18] MEDS ORDERED: ONDANSETRON ODT 4 MG TAB.RAPDIS SL PRN (22:00)
[2017-03-18] MEDS ORDERED: LORAZEPAM 1 MG TABLET PO PRN (22:00)
[2017-03-18] MEDS ORDERED: ACETAMINOPHEN 325 MG TABLET PO PRN (22:00)
--- NOTE | 2017-03-18 22:00 | NUR ---
Pre admission note Pt seen in intake office. Pt appears moderately intoxicated but in stable condition. V/S WNL. No s/s of distress noted at this time. Respirations even and unlabored. Policies on medication disposal explained to and understood by patient. Will admit to unit. Will continue to monitor.
--- NOTE | 2017-03-18 22:14 | NUR ---
Admission note Pt is a 22 yo male, A+Ox4, presenting to [facility] [place] for Opiate/ETOH/Meth dependence. Pt has NKA, is on Full code status, and on Regular diet. Pt is 6'0" in height and 195 LBS in weight. Pt has medical HX of Herpes, Hepatitis C+, Asthma, Seizure, Anxiety, Depression, and HTN. Pt has family HX of Alcohol abuse from Father. Pt has a primary care provider named Dr. Garcia. Pt has been using Heroin IV for 8 years (1.5 months currently), has reached a level of 2-2.5gm/daily, and last dose was 2gm on 03-18-17 @1730. Pt has been drinking Alcohol for 10 years (1.5 months currently), has reached a level of 750ml [place]/daily, and last drink was "a couple of drinks" on 03-18-17 @0600. Pt has been using Methamphetamine by inhalation for 7 years (1.5 months currently), has reached a level of 0.5gm 3x/week, and last dose was 0.5gm on 03-16-17. Pt is taking home medications as follows: Gabapentin 800mg TID, Propranolol 20mg BID, Lisinopril 10mg QD, Valacyclovir 500mg QD, Lexapro 10mg, QHS, and Remeron 60mg QHS. Pt has HX of previous detox @ [facility], [place] for 7 days in November 2016 and 14 days rehab afterwards. This was the patient's last time sober. Pt has been a cigarette smoker for 9 years and has reached a level of 20/daily. Pt appears moderately intoxicated upon admission but in stable condition. V/S WNL. No s/s of distress noted at this time. Respirations even and unlabored. Will continue to monitor.
[2017-03-18 22:23] LABS: BASOPHILS % (AUTO) 0.6 % (0.0-2.0); EOSINOPHILS # (AUTO) 0.4 K/uL (0.0-0.7); EOSINOPHILS % (AUTO) 5.8 % (0.0-7.0); HEMATOCRIT 39.8 % (40-50); HEMOGLOBIN 13.1 G/DL (14.0-18.0); LYMPHOCYTES # (AUTO) 2.1 K/UL (0.8-4.8); LYMPHOCYTES % (AUTO) 28.5 % (20.5-51.5); MEAN CORPUSCULAR HEMOGLOBIN 29.4 UUG (27.0-31.0); MEAN CORPUSCULAR HGB CONC 33 g/dL (32.0-37.0); MONOCYTES % (AUTO) 13.9 % (0.0-11.0); NEUTROPHILS # (AUTO) 3.8 K/UL (1.8-8.9); NEUTROPHILS % (AUTO) 51.2 % (38.5-71.5); PLATELET COUNT (AUTO) 246 K/UL (150-450); RED BLOOD CELL COUNT(AUTO) 4.47 MIL/UL (4.7-6.1); WHITE BLOOD COUNT (AUTO) 7.3 K/UL (4.0-11.2)
[2017-03-18 22:36] LABS: ALANINE AMINOTRANSFERASE 36 U/L (16-63); ALKALINE PHOSPHATASE 110 U/L (50-136); AMYLASE 23 U/L (25-115); ASPARTATE AMINOTRANSFERASE 29 U/L (15-37); BILIRUBIN,TOTAL 0.4 mg/dL (0.2-1.0); CARBON DIOXIDE 31 mmol/L (21-32); CHLORIDE 100 mmol/L (98-107); CREATININE 1.2 mg/dL (0.6-1.3); GLUCOSE 92 mg/dL (74-106); LIPASE 62 U/L (73-393); MAGNESIUM 1.8 mg/dL (1.8-2.4); POTASSIUM 3.6 mmol/L (3.5-5.1); TOTAL PROTEIN, SERUM 7.2 g/dL (6.4-8.2); UREA NITROGEN, BLOOD 16 mg/dL (7-18)
[2017-03-18 22:40] LABS: ETHANOL < 3 MG/DL (0-0)
[2017-03-18 23:01] VITALS: BP 109/55
[2017-03-19 02:14] LABS: *AMPHETAMINE, URINE POSITIVE (NEGATIVE); *BARBITURATE, URINE NEGATIVE (NEGATIVE); *CANNABINOID, URINE POSITIVE (NEGATIVE); *COCCAINE, URINE NEGATIVE (NEGATIVE); *OPIATE, URINE POSITIVE (NEGATIVE); *PHENCYCLIDINE SCREEN,URINE NEGATIVE (NEGATIVE)
[2017-03-19 04:12] VITALS: BP 112/62
--- NOTE | 2017-03-19 06:59 | NUR ---
End of shift note Pt is a 22 yo male, A+Ox4, presenting to [facility] for Opiate/ETOH/Meth dependence. Pt has NKA, is on Full code status, and on Regular diet. Pt has medical HX of Herpes, Hepatitis C+, Asthma, Seizure, Anxiety, Depression, and HTN. Pt is on Fall and Seizure precautions. Pt is on PRN medications and awaiting taper medication orders in AM from MD. Pt slept for a total of 4 HRS. Last COWS: 4 and Last CIWA: 3 @0400. No s/s of distress noted at this time. Respirations even and unlabored. Will endorse to day shift nurse.
--- NOTE | 2017-03-19 07:43 | NUR ---
Start of shift note; Received report from night nurse. Patient is a 22 year old male admitted on 03/18/17 for Opiate andETOH dependence. Patient to be evaluated by MD today for taper orders. Patient reported history of herpes, asthma, anxiety, Hep C, Hypertension, depression, seizure and reported left ankle injury to be evaluated by MD for further assessment. NKA, on full code status, regular diet. Patient slept for 4 hours, last COWS of 4 and CIWA 3. Patient is on fall and seizure precaution. Bed in lowest position, call light within reach.
[2017-03-19 08:00] VITALS: BP 97/53
[2017-03-19] MEDS: THIAMINE HCL 100 MG TABLET PO SCH (08:51)
[2017-03-19] MEDS: MULTIVITAMINS,THERAPEUTIC TABLET PO SCH (08:51)
[2017-03-19] MEDS: FOLIC ACID 1 MG TABLET PO SCH (08:51)
[2017-03-19] MEDS ORDERED: TUBERCULIN,PURIF.PROT.DERIV. 5 TU/0.1 ML TEST ID ONE ×2 (09:00→13:00)
--- NOTE | 2017-03-19 09:00 | NUR ---
MD communication; MD on unit. Notified MD of patient's left foot/ankle injury prior to admission. Md to order XRAY for further evaluation. Will closely monitor patient.
[2017-03-19] MEDS ORDERED: METHOCARBAMOL 750 MG TABLET PO PRN (09:15)
[2017-03-19 12:00] VITALS: BP 127/62
[2017-03-19] MEDS: LORAZEPAM 1 MG TABLET PO PRN ×2 (12:23→16:17)
[2017-03-19] MEDS: GABAPENTIN 300 MG CAPSULE PO SCH ×2 (12:23→16:17)
--- NOTE | 2017-03-19 12:23 | NUR ---
PRN medication; Patient's current COWS score is 6 and CIWA score of 7 manifested by anxiety, sweating, muscle aches, stuffy nose, mild headache. PRN Ativan 1mg PO PRN given for CIWA of 7 given as ordered. Will continue to monitor patient for effectiveness of medication.
--- NOTE | 2017-03-19 12:35 | NUR ---
Left ankle XR result; Overlying grid artifact and clothing artifact limit evaluation. The inferior aspect of the calcaneus is excluded from the examination. The osseous structures demonstrate normal alignment and mineralization. No acute fracture or dislocation is seen. The ankle mortise is intact. No periostitis or osteochondral lesion is identified. There is lateral malleolar soft tissue edema. MD was notified with the results. MD ordered Physical therapy evaluation. Elevated affected foot/ankle to prevent further swelling. Will closly monitor patient.
--- NOTE | 2017-03-19 13:23 | NUR ---
Re-assessment; Patient's current CIWA score is 5. PRN medication noted to be effective.
--- NOTE | 2017-03-19 13:42 | NUR ---
Left foot XR result; Nondisplaced fracture of the base of the left fifth metatarsal. MD notified. Per Dr. Ugarte, orthopedic MD was already notified for consult. Educated patient regarding limitations when ambulating to prevent further injury, patient verbalized understanding.
[2017-03-19 16:00] VITALS: BP 121/72
--- NOTE | 2017-03-19 16:00 | NUR ---
MD order; ordered a 4 day Ativan taper and 4 day Subutex taper to start tomorrow 03/20/17. Orders carried out and faxed to pharmacy.
[2017-03-19] MEDS: BUPRENORPHINE HCL 2 MG TAB.SUBL SL PRN ×2 (16:18→21:07)
--- NOTE | 2017-03-19 16:18 | NUR ---
PRN medication; Patient is currently showing s/s of withdrawals manifested by chills and sweats, anxiety, agitation, muscle aches, goosebump with current COWS score of 12 and CIWA of 10. PRN Subutex 4mg SL given for COWS of 12 and Ativan 1mg PO given for CIWA of 10. Will closely monitor patient for effectiveness of medication.
--- NOTE | 2017-03-19 17:18 | NUR ---
Re-assessment; Patient's current COWS is 9 and CIWA of 6 manifested by muscle aches, anxiety, agitation, hot and cold sweats. PRN medications noted to be effective.
--- NOTE | 2017-03-19 19:12 | NUR ---
End of shift note; Patient is AOX4. Patient is a 22 year old male admitted on 03/18/17 for Opiate and ETOH dependence. Patient to be evaluated by MD today for taper orders. Patient reported history of herpes, asthma, anxiety, Hep C, Hypertension, depression, seizure and left ankle injury. NKA, on full code status, regular diet. Patient to start 5 day Ativan and 5 day Subutex taper tomorrow morning. Patient remained compliant with treatment plan and medication regime. Medications noted to be effective. Educated patient regarding the importance of keeping left foot off weight bearing and to elevate foot to prevent further swelling. Still awaiting for further evaluation by orthopedic doctor. Endorsed to night nurse. Met all needs.
--- NOTE | 2017-03-19 19:15 | NUR ---
Start of shift note Received report from day shift nurse. Pt is a 22 yo male, A+Ox4, presenting to [facility] for Opiate/ETOH/Meth dependence. Pt has NKA, is on Full code status, and on Regular diet. Pt has medical HX of Herpes, Hepatitis C+, Asthma, Seizure, Anxiety, Depression, and HTN. Pt is on Fall and Seizure precautions. Pt is on 5 day Subutex taper and 5 day Ativan taper to start tomorrow. No s/s of distress noted at this time. Respirations even and unlabored. Will continue to monitor.
[2017-03-19 20:05] VITALS: BP 106/73
[2017-03-19] MEDS: MIRTAZAPINE 15 MG TABLET PO SCH (21:06)
--- NOTE | 2017-03-19 21:07 | NUR ---
PRN Ativan 2mg and Subutex 4mg Pt noted with CIWA: 16 and COWS: 12. PRN Ativan 1mg and Subutex 4mg given and tolerated well. Will reassess within 30mins. Will continue to monitor.
--- NOTE | 2017-03-19 21:35 | NUR ---
PRN Ativan 2mg and Subutex 4 mg Reassessment Medication effective. Pt noted with CIWA: 4 and COWS: 6. No s/s of ASE/distress noted at this time. Respirations even and unlabored. Will continue to monitor.
[2017-03-20 00:15] VITALS: BP 124/75
[2017-03-20 04:51] VITALS: BP 128/77
--- NOTE | 2017-03-20 06:39 | NUR ---
End of shift note Pt is a 22 yo male, A+Ox4, presenting to [facility] for Opiate/ETOH/Meth dependence. Pt has NKA, is on Full code status, and on Regular diet. Pt has medical HX of Herpes, Hepatitis C+, Asthma, Seizure, Anxiety, Depression, and HTN. Pt is on Fall and Seizure precautions. Pt is on 5 day Ativan and 5 day Subutex tapers to start today. Pt was given PRN Ativan 2mg and Subutex 4mg @2107. Pt slept for a total of 7 HRS. Last COWS: 4 and Last CIWA: 3 @0400. No s/s of distress noted at this time. Respirations even and unlabored. Will endorse to day shift nurse.
--- NOTE | 2017-03-20 07:30 | NUR ---
Start of shift note; Received report from night nurse. Patient is a 22 year old male admitted on 03/18/17 for Opiate andETOH dependence. Patient to start Ativan and Subutex tapers today. Patient reported history of herpes, asthma, anxiety, Hep C, Hypertension, depression, seizure and reported left ankle injury. Patient was seen and evaluated last night by Orthopedic MD, MD ordered cam boot for patient's left foot. Patient to be evaluated by physical therapist today. NKA, on full code status, regular diet. Patient slept for 7 hours, last COWS of 4 and CIWA 3. Patient is on fall and seizure precaution. Bed in lowest position, call light within reach.
[2017-03-20 08:00] VITALS: BP 106/66
[2017-03-20 08:20] LABS: HEPATITIS B SURFACE AG Negative (Negative)
[2017-03-20] MEDS ORDERED: 5 DAY TAPER BUPRENORPHINE -SERENITY PROTOCOL SL PRN (09:00)
[2017-03-20] MEDS ORDERED: 5 DAY TAPER OF LORAZEPAM -SERENITY PROTOCOL PO PRN (09:00)
[2017-03-20] MEDS ORDERED: LORAZEPAM 1 MG TABLET PO SCH (09:00)
[2017-03-20] MEDS: GABAPENTIN 300 MG CAPSULE PO SCH ×3 (09:38→16:30)
[2017-03-20] MEDS: LORAZEPAM 1 MG TABLET PO SCH ×4 (09:39→20:47)
[2017-03-20] MEDS: THIAMINE HCL 100 MG TABLET PO SCH (09:39)
[2017-03-20] MEDS: BUPRENORPHINE HCL 2 MG TAB.SUBL SL SCH ×4 (09:39→20:48)
[2017-03-20] MEDS: MULTIVITAMINS,THERAPEUTIC TABLET PO SCH (09:39)
[2017-03-20] MEDS: FOLIC ACID 1 MG TABLET PO SCH (09:39)
[2017-03-20 12:00] VITALS: BP 113/66
[2017-03-20] MEDS: NICOTINE POLACRILEX 4 MG GUM-PK OF TEN BC PRN ×2 (12:05→14:21)
--- NOTE | 2017-03-20 12:05 | NUR ---
PRN; Patient requested for nicotine gum for nicotine cravings. Educated patient regarding the importance of not smoking to prevent nicotine toxicity, verbalized understanding.
--- NOTE | 2017-03-20 13:06 | NUR ---
Therapist prompted client about group times. Client stated he wants to rest today.
--- NOTE | 2017-03-20 14:24 | NUR ---
PRN Pt requesting for nicotine. Nicotine gum given and tolerated well.
[2017-03-20 16:00] VITALS: BP 130/90
--- NOTE | 2017-03-20 18:35 | NUR ---
End of shift note; Patient is AOx4. Patient is a 22 year old male admitted on 03/18/17 for Opiate andETOH dependence. Patient to start Ativan and Subutex tapers today. Patient reported history of herpes, asthma, anxiety, Hep C, Hypertension, depression, seizure and reported left ankle injury. Patient was seen and evaluated last night by Orthopedic MD, MD ordered cam boot for patient's left foot. Patient was seen and evaluated by physical therapist, Cam boot was fitted. Educated patient to elevate affected foot and to prevent weight bearing, patient verbalized understanding. Patient remained compliant with treatment plan and medication regime. All safety measures secured. Met all needs.
[2017-03-20 20:00] VITALS: BP 109/60
--- NOTE | 2017-03-20 20:00 | NUR ---
START OF SHIFT NOTE RECEIVED REPORT FROM DAY SHIFT NURSE. PATIENT IS A 22 YEAR OLD MALE ADMITTED FOR ETOH/OPIATE/METH DEPENDENCE. PATIENT IS ON 5 DAY ATIVAN AND 5 DAY SUBUTEX, STARTED TODAY. PATIENT HAS LEFT 5TH METATARSAL . PATIENT IS WEARING CAM WALKER BOOTS AND NO WEIGHT BEARING ON LEFT FOOT. PATIENT HAS SEIZURE HISTORY , LAST ONE WAS A YEAR AGO. PATIENT WAS GIVEN PRN NICOTINE GUM. LAST COWS 6 AND CIWA 5. RECEIVED RESIDENT IN ROOM, RESTING. PATIENT REPORTS ANXIETY, SWEATING, ABDOMINAL CRAMPING, STUFFY NOSE AND GENERALIZED BODY ACHES 10/23. NO N/V. ON FALL/SEIZURE PRECAUTION. SAFETY MEASURES IN PLACE. CALL LIGHT IN REACH. WILL CONTINUE TO MONITOR.
[2017-03-20] MEDS: MIRTAZAPINE 15 MG TABLET PO SCH (20:47)
[2017-03-20] MEDS: METHOCARBAMOL 750 MG TABLET PO PRN (20:47)
[2017-03-20] MEDS: QUETIAPINE FUMARATE 25 MG TABLET PO PRN (20:47)
--- NOTE | 2017-03-20 20:47 | NUR ---
PRN ROBAXIN AND SEROQUEL ADMINISTRATION PATIENT REQUESTS FOR SLEEP AID AND C/O GENERALIZED BODY PAIN 10/23, WILL MONITOR FOR EFFECTIVENESS
--- NOTE | 2017-03-20 21:47 | NUR ---
PRN ROBAXIN RE-ASSESSMENT PATIENT STATES ROBAXIN IS HELPFUL. PAIN LEVEL 2/10 AT THIS TIME. WILL CONTINUE TO MONITOR
--- NOTE | 2017-03-20 22:00 | NUR ---
PRN SEROQUEL RE-ASSESSMENT PATIENT ASLEEP AT THIS TIME. WILL CONTINUE TO MONITOR
[2017-03-21] VITALS: BP 128/68
--- NOTE | 2017-03-21 | NUR ---
COWS AND CIWA DEFERRED PATIENT SLEEPING. COWS AND CIWA DEFERRED. RESPIRATION EVEN AND UNLABORED. SAFETY MEASURES IN PLACE. CALL LIGHT IN REACH. WILL CONTINUE TO MONITOR . WILL CONTINUE TO MONITOR.
[2017-03-21] MEDS: NICOTINE POLACRILEX 4 MG GUM-PK OF TEN BC PRN ×2 (01:06→20:40)
--- NOTE | 2017-03-21 01:06 | NUR ---
PRN NICOTINE GUM ADMINISTRATION PATIENT REQUESTS FOR NICOTINE GUM.
--- NOTE | 2017-03-21 04:00 | NUR ---
COWS AND CIWA DEFERRED PATIENT SLEEPING. COWS AND CIWA DEFERRED. VS REFUSED. RESPIRATION EVEN AND UNLABORED. SAFETY MEASURES IN PLACE. CALL LIGHT IN REACH. WILL CONTINUE TO MONITOR . WILL CONTINUE TO MONITOR.
--- NOTE | 2017-03-21 07:05 | NUR ---
END OF SHIFT NOTE PATIENT IS A 22 YEAR OLD MALE ADMITTED FOR ETOH/OPIATE/METH DEPENDENCE. PATIENT IS ON 5 DAY ATIVAN AND 5 DAY SUBUTEX, TOLERATED WELL AND NO ADVERSE REACTION. PATIENT HAS LEFT 5TH METATARSAL FRACTURE. PATIENT IS WEARING CAM WALKER BOOTS AND NON WEIGHT BEARING. ELEVATE LEFT EXTREMITY WHILE IN BED. PATIENT HAS SEIZURE HISTORY , LAST ONE WAS A YEAR AGO. PATIENT WAS GIVEN PRN NICOTINE GUM, ROBAXIN AND SEROQUEL. PATIENT COMPLIANT WITH MEDICATIONS AND TREATMENT PLAN. ON FALL/SEIZURE PRECAUTION. SAFETY MEASURES IN PLACE. CALL LIGHT IN REACH. WILL CONTINUE TO MONITOR. SLEPT 7 HOURS. FLUID INTAKE 1,095 ML. VOIDED X 2. NO BM. LAST COWS 7 AND CIWA 4.
[2017-03-21 08:00] VITALS: BP 130/91
--- NOTE | 2017-03-21 08:13 | NUR ---
Start of shift note; Received report from night nurse. Patient is a 22 year old male admitted on 03/18/17 for Opiate andETOH dependence. Patient to start Ativan and Subutex tapers today. Patient reported history of herpes, asthma, anxiety, Hep C, Hypertension, depression, seizure and reported left ankle injury. Patient was seen and evaluated last night by Orthopedic MD, MD ordered cam boot for patient's left foot. Patient to be evaluated by physical therapist today. NKA, on full code status, regular diet. Patient slept for 8 hours. Patient is on fall and seizure precaution. Bed in lowest position, call light within reach.
[2017-03-21] MEDS: THIAMINE HCL 100 MG TABLET PO SCH (08:56)
[2017-03-21] MEDS: BUPRENORPHINE HCL 2 MG TAB.SUBL SL SCH ×3 (08:56→20:42)
[2017-03-21] MEDS: LORAZEPAM 1 MG TABLET PO SCH ×3 (08:56→20:40)
[2017-03-21] MEDS: GABAPENTIN 300 MG CAPSULE PO SCH ×3 (08:56→16:32)
[2017-03-21] MEDS: FOLIC ACID 1 MG TABLET PO SCH (08:56)
[2017-03-21] MEDS: MULTIVITAMINS,THERAPEUTIC TABLET PO SCH (08:56)
[2017-03-21] MEDS ORDERED: LORAZEPAM 1 MG TABLET PO SCH (09:00)
[2017-03-21] MEDS ORDERED: ESCI10TA PO (09:11)
[2017-03-21] MEDS ORDERED: MIRT45TA PO (09:11)
[2017-03-21] MEDS ORDERED: LISI10TA5 PO (09:11)
[2017-03-21] MEDS ORDERED: PROP20TA7 PO (09:11)
[2017-03-21] MEDS ORDERED: VALA500T34 PO (09:11)
[2017-03-21 12:00] VITALS: BP 118/86
--- NOTE | 2017-03-21 12:00 | NUR ---
MD communication; Patient reported that he takes the following home medications; Propranolol, Lisinopril, Valacyclovir , Lexapro and Remeron. MD notified of patient's home medications and the need to reconcile medications. Will continue to monitor patient.
[2017-03-21 16:00] VITALS: BP 133/88
--- NOTE | 2017-03-21 18:22 | NUR ---
End of shift note; Patient is AOx4. Patient is a 22 year old male admitted on 03/18/17 for Opiate and ETOH dependence. Patient to start Ativan and Subutex tapers today. Patient reported history of herpes, asthma, anxiety, Hep C, Hypertension, depression, seizure and reported left ankle injury. Patient was seen and evaluated by physical therapist, Cam boot applied on patient. Educated patient to elevate affected foot and to prevent weight bearing, patient verbalized understanding. Patient remained compliant with treatment plan and medication regime. All safety measures secured. Met all needs.
[2017-03-21 20:00] VITALS: BP 131/75
--- NOTE | 2017-03-21 20:00 | NUR ---
START OF SHIFT NOTE RECEIVED REPORT FROM DAY SHIFT NURSE. PATIENT IS A 22 YEAR OLD MALE ADMITTED FOR ETOH/OPIATE DEPENDENCE. PATIENT IS ON 5 DAY ATIVAN AND 5 SUBUTEX TAPER. PATIENT REPORTS PMH OF HERPES, ASTHMA, ANXIETY , HEP C, HTN, LEFT ANKLE INJURY, DEPRESSION AND SEIZURE, 1 YEAR AGO. PATIENT WEARS CAM WALKER BOOTS, NON WEIGHT BEARING ON LEFT FOOT DUE TO LEFT ANKLE INJURY. RECEIVED PATIENT IN THE ROOM, ALERT AND ORIENTED X 4. RESPIRATION EVEN AND UNLABORED. PATIENT REPORTS ANXIETY, SWEATING, NO N/V, GENERALIZED BODY ACHES 09/23, HE ATTENDED 1 GROUPS . APPETITE IS GOOD. ON FALL/SEIZURE PRECAUTION. SAFETY MEASURES IN PLACE. CALL LIGHT IN REACH. WILL CONTINUE TO MONITOR.
[2017-03-21] MEDS: ESCITALOPRAM OXALATE 10 MG TABLET PO SCH (20:40)
[2017-03-21] MEDS: MIRTAZAPINE 15 MG TABLET PO SCH (20:40)
[2017-03-21] MEDS: METHOCARBAMOL 750 MG TABLET PO PRN (20:40)
[2017-03-21] MEDS: QUETIAPINE FUMARATE 25 MG TABLET PO PRN (20:40)
--- NOTE | 2017-03-21 20:40 | NUR ---
PRN ROBAXIN, NICOTINE GUM AND SEROQUEL ADMINISTRATION PATIENT C/O GENERALIZED BODY ACHES 10 AND REQUESTS FOR SLEEP AID AND NICOTINE GUM. WILL MONITOR FOR EFFECTIVENESS
--- NOTE | 2017-03-21 21:40 | NUR ---
PRN ROBAXIN RE-ASSESSMENT PATIENT STATES ROBAXIN IS HELPFUL AND EFFECTIVE. PAIN LEVEL IS 2/10 AT THIS TIME, TOLERABLE. WILL CONTINUE TO MONITOR.
--- NOTE | 2017-03-21 22:30 | NUR ---
PRN SEROQUEL RE-ASSESSMENT PATIENT ASLEEP AT THIS TIME. RESPIRATION EVEN AND UNLABORED. WILL CONTINUE TO MONITOR
--- NOTE | 2017-03-22 | NUR ---
COWS/CIWA DEFERRED PATIENT SLEEPING . COWS/CIWA DEFERRED. PATIENT REFUSED VS, WANTS TO SLEEP. RESPIRATION EVEN AND UNLABORED. SAFETY MEASURES IN PLACE. CALL LIGHT IN REACH. WILL CONTINUE TO MONITOR.
[2017-03-22] MEDS: NICOTINE POLACRILEX 4 MG GUM-PK OF TEN BC PRN ×2 (05:05→08:47)
--- NOTE | 2017-03-22 05:05 | NUR ---
PRN NICOTINE GUM ADMINISTRATION PATIENT REQUESTS FOR NICOTINE GUM. WILL CONTINUE TO MONITO
--- NOTE | 2017-03-22 07:30 | NUR ---
END OF SHIFT NOTE PATIENT IS A 22 YEAR OLD MALE ADMITTED FOR ETOH/OPIATE DEPENDENCE. PATIENT IS ON 5 DAY ATIVAN AND 5 SUBUTEX TAPER, TOLERATED WELL AND NO ADVERSE REACTION. UPON ADMISSION , PATIENT HAD LEFT ANKLE INJURY, WEARS CAM WALKER BOOT AND NON WEIGHT BEARING ON LEFT FOOT. PATIENT EDUCATE ON WEARING THE CAM WALKER BOOT AND NON WEARING ON LEFT FOOT, EXPLAINED RISKS/BENEFITS. PATIENT WAS GIVEN PRN ROBAXIN , SEROQUEL AND NICOTINE GUM X 2. ON FALL/SEIZURE PRECAUTION. SAFETY MEASURES IN PLACE. CALL LIGHT IN REACH. WILL CONTINUE TO MONITOR. SLEPT 6 HOURS. FLUID INTAKE 1,755 ML. VOIDED X 2 . NO BM. LAST COWS 6 AND CIWA 5.
--- NOTE | 2017-03-22 07:31 | NUR ---
Start of Shift Notes: Received patient in his room. Alert and verbally responsive. Oriented x 4. Appears agitated. Respirations even and unlabored. No SOB noted. Skin warm and dry to touch. Abdomen soft and non-distended. BS (+) in all 4 quadrants. No complains of N/V/D or constipation noted. Bladder non-distended. Voids independently. Ambulatory ad anila with steady gait. Patient is a 22 year old male admitted for opiate/ETOH and methamphetamine dependence who was placed on a 5-day Subutex and 5-day Ativan taper as ordered. No adverse reactions noted. Has past medical hx of seizures, Hep C, left ankle fracture. On non-weight bearing status to left foot. Uses left camboot when walking. Ambulatory ad anila. NKA. FULL CODE. Regular diet. On all and seizure precautions. Educated patient on his current plan of care for the day and his medication regimen. Encouraged oral fluid intake and encouraged group participation to learn new skills to prevent relapse.
[2017-03-22 08:00] VITALS: BP 112/56
[2017-03-22] MEDS: METHOCARBAMOL 750 MG TABLET PO PRN (08:34)
[2017-03-22] MEDS: GABAPENTIN 300 MG CAPSULE PO SCH ×3 (08:34→16:42)
[2017-03-22] MEDS: MULTIVITAMINS,THERAPEUTIC TABLET PO SCH (08:35)
[2017-03-22] MEDS: FOLIC ACID 1 MG TABLET PO SCH (08:35)
[2017-03-22] MEDS: LORAZEPAM 1 MG TABLET PO SCH ×4 (08:35→20:29)
--- NOTE | 2017-03-22 08:35 | NUR ---
Robaxin 750 mg PO given: Patient noted with complain of 5/10 myalgia related to opiate withdrawals. Medicated patient with Robaxin 750 mg PO as ordered. Will monitor for effectiveness.
[2017-03-22] MEDS: THIAMINE HCL 100 MG TABLET PO SCH (08:47)
[2017-03-22] MEDS: VALACYCLOVIR HCL 500 MG TABLET PO SCH (08:47)
--- NOTE | 2017-03-22 08:47 | NUR ---
Nicotine gum given: Patient requested for nicotine gum to aid in smoking cessation and to help for nicotine cravings. Administered nicotine gum as ordered. Will monitor for effectiveness.
[2017-03-22] MEDS ORDERED: LORAZEPAM 1 MG TABLET PO SCH (09:00)
[2017-03-22] MEDS ORDERED: BUPRENORPHINE HCL 2 MG TAB.SUBL SL SCH (09:00)
--- NOTE | 2017-03-22 09:17 | NUR ---
Re-assessment: Nicotine gum Patient verbalized relief from nicotine cravings by chewing nicotine gum.
--- NOTE | 2017-03-22 09:35 | NUR ---
Re-assessment: Robaxin Per patient, PRN Robaxin was effective in reducing myalgia. PL 2.
--- NOTE | 2017-03-22 10:33 | NUR ---
Therapist prompted client about group times. Client stated he will attend groups today if he doesn't feel "too tired."
[2017-03-22 12:00] VITALS: BP 126/76
[2017-03-22] MEDS: IBUPROFEN 400 MG TABLET PO PRN ×2 (13:57→20:29)
--- NOTE | 2017-03-22 13:57 | NUR ---
Motrin 400 mg PO given: Patient noted with complain of 5/10 pain to left ankle/foot related to fracture. Encouraged patient to use camboot to left foot when ambulating. Patient states he will comply. Non-pharmacological interventions were provided but ineffective. Medicated patient with Motrin 400 mg PO as ordered. Will monitor for effectiveness.
[2017-03-22] MEDS: BUPRENORPHINE HCL 2 MG TAB.SUBL SL SCH ×2 (14:00→20:29)
--- NOTE | 2017-03-22 14:31 | NUR ---
Nursing note: PT delivered cane for the patient to use during his stay here and upon discharge. Patient education was provided. Patient verbalized good understanding.
--- NOTE | 2017-03-22 14:57 | NUR ---
Re-assessment: Motrin Patient states that PRN Motrin given was effective in relieving pain. PL 05/26.
[2017-03-22 16:00] VITALS: BP 135/66
--- NOTE | 2017-03-22 18:50 | NUR ---
End of Shift Notes: Patient continues to be on 5-day Subutex and 5-day Ativan taper as ordered. No adverse reactions noted. VS monitored closely. No significant abnormalities noted. Withdrawal symptoms were closely monitored. Initial COWS 7/CIWA 6, patient presented with anxiety, agitation, muscle aches, chills, hot flashes, and yawning. Last COWS 3/CIWA 3. Medicated patient with Robaxin and Nicotine gum at 0847 with help after 1 hour. At 1357, patient was medicated with Motrin 400 mg PO for left foot/ankle paint with help. Per patient, Ativan and Subutex has been effective in reducing patients withdrawal symptoms. Patient non-compliant with application of left camboot when walking at times. PT treatment done today and recommends for patient to ambulate with left camboot on and with cane. Patient education provided. Participated in group and activities despite his withdrawal symptoms. All needs met and attended. Will continue to monitor.
--- NOTE | 2017-03-22 19:15 | NUR ---
Start of Shift Note: Patient is a 22 y/o male admitted on 03/18/17 fopr Heroin, ETOH and Meth dependence. Patient reported with PMHx of herpes, Asthma, Anxiety, Hep C, HTN, Depression, Left ankle injury and Seizure a year ago. Seizure and Fall precaution noted. Patient is on a 5-day Ativan and 5-day Subutex taper and tolerating well. Last COWS 3 CIWA 3. Pt received PRN Nicotine gum, Motrin & Robaxin during day shift. Patient is alert & oriented x4. Pt has a left ankle injury and he ambulates using a cane or a wheelchair. No shortness of breath noted. Respiration even & unlabored. Abdomen soft & non-distended. No nausea noted. Pt presented with complaints of stomach cramps, sweating, stuffy nose, 8/10 left ankle pain & slight anxiety. Slight hand tremors noted. Pt denies any hallucinations. Safety measures in place. Bed locked in lowest position. Both side rails up. Call light within pt's reach. Will continue to monitor patient.
[2017-03-22 20:00] VITALS: BP 110/81
[2017-03-22] MEDS: MIRTAZAPINE 15 MG TABLET PO SCH (20:29)
[2017-03-22] MEDS: ESCITALOPRAM OXALATE 10 MG TABLET PO SCH (20:29)
--- NOTE | 2017-03-22 20:29 | NUR ---
PRN Motrin Patient complains of 8/10 left ankle pain. Pt noted with facial grimacing when moving ankle. PRN Motrin administered as ordered. Will continue to monitor for effectiveness of medication.
[2017-03-22] MEDS: QUETIAPINE FUMARATE 25 MG TABLET PO PRN (20:39)
--- NOTE | 2017-03-22 20:39 | NUR ---
PRN Seroquel Patient requesting medication to help him sleep. PRN Seroquel administered as ordered. Will continue to monitor patient.
--- NOTE | 2017-03-22 21:29 | NUR ---
PRN Reassessment PRN medication effective. Pt verbalized decrease in left ankle pain from 8/10 to 4/10. Pt noted with no facial grimacing. Will continue to monitor patient.
[2017-03-23] VITALS: BP 105/71
--- NOTE | 2017-03-23 06:53 | NUR ---
End of Shift Note: Pt had an uneventful night. Pt continues on his Ativan & Subutex taper and tolerating well. Last COWS 5 CIWA 4. Pt received PRN Motrin for 8/10 pain & Seroquel for sleep and were effective. Encourages pt to use a cane or a wheelchair when ambulating. Pt remains stable and vitals remains WNL. Pt is compliant with medications. Will continue to educate pt to increase fluid intake. Pt still asleep at this time. No s/s of distress noted. Pt slept for a total of 6 hours. Fluid intake:2256 ml. Voided 5x with 1x bowel movement. All needs attended met. Safety precautions are in place. Will endorse pt to day shift nurse.
--- NOTE | 2017-03-23 06:53 | NUR ---
START OF SHIFT NOTE: Patient is a 22 year old male admitted to [facility] on 03/18/2017 for Alcohol, Opioid, and Methamphetamine dependence. Patient continues 5 Day Ativan and 5 Day Subutex Taper. Patient tolerated well without ASE. Patient reported NKA, is on Full code, Regular Diet. Patient placed on Fall and Seizures Precautions. PMH: Anxiety, Asthma, Depression, Hepatitis C, HTN, Left Ankle injury, Seizure History in 2016. Patient reports substance use: "ETOH/Alcohol PO since 2006. Patient reports he uses 750 ml of "[place]" every day last 1,5 months. Last used couple drinks" on 03/18/2017 @0600. Methamphetamine 0.5 grams every day last 3 weeks. Patient uses Methamphetamine since 2009. Last used 0.5 grams on 03/18/2017. Heroin via IV 2-2.5 grams every day last 1,5 months. Last used 0.5 grams via IV 0n 03/16/2017". Upon endorsement, patient is in his room resting on the bed alert and oriented x4. Patient denies SI/HI. COWS 6,CIWA 5. Patient presented with anxiety, agitation, nervousness, tremors, restlessness, and sweating. VS WNL. Respirations are even and unlabored. Lung Sounds are clear throughout. Patient denied SOB and chest pain. Heart rate is regular, no murmur noted. Bowel Sounds are active in all four quadrants. Abdomen is soft and non-tender. Skin is warm and dry to touch. Patient has multiple scabs on Face and Back. Patient uses walker on Left leg. Left leg elevated when patient in the bed. All needs met. Safety measures on place. Call light within reach, bed in lowest position and locked, padded rails up bilaterally rails up bilaterally. Patient endorsed by day shift nurse. Report received. Will continue to monitor closely.
[2017-03-23 08:00] VITALS: BP 120/66
[2017-03-23] MEDS: VALACYCLOVIR HCL 500 MG TABLET PO SCH (08:20)
[2017-03-23] MEDS: LORAZEPAM 1 MG TABLET PO SCH ×2 (08:21→14:41)
[2017-03-23] MEDS: BUPRENORPHINE HCL 2 MG TAB.SUBL SL SCH ×3 (08:21→20:53)
[2017-03-23] MEDS: GABAPENTIN 300 MG CAPSULE PO SCH ×2 (08:21→13:15)
[2017-03-23] MEDS: THIAMINE HCL 100 MG TABLET PO SCH (08:21)
[2017-03-23] MEDS: FOLIC ACID 1 MG TABLET PO SCH (08:21)
[2017-03-23] MEDS: MULTIVITAMINS,THERAPEUTIC TABLET PO SCH (08:21)
[2017-03-23] MEDS ORDERED: LORAZEPAM 1 MG TABLET PO SCH ×2 (09:00→21:00)
[2017-03-23 12:00] VITALS: BP 119/64
[2017-03-23] MEDS: IBUPROFEN 400 MG TABLET PO PRN (13:15)
[2017-03-23] MEDS: HYDROXYZINE PAMOATE 25 MG CAPSULE PO PRN (13:15)
--- NOTE | 2017-03-23 13:15 | NUR ---
PRN VISTARIL 50 MG 2 CAP PO AND PRN MOTRIN 600 MG 1 TAB PO ADMINISTRATION Patient c/o increased anxiety and right leg pain level "10/23PRN Vistaril 50 mg 2 capsules PO and PRN Motrin 600 mg 1 tab PO administrated with full glass of water as ordered. Patient tolerated well. All needs met. Safety measures on place. Call light within reach, bed in lowest position and locked, padded rails up bilaterally rails up bilaterally. Will continue to monitor closely. Addendum: 03/23/17 at 1407 by DIONISIO CM RN pain level "10/23". Addendum: 03/23/17 at 1420 by DIONISIO CM RN PRN MOTRIN 400 MG 1 TAB PO ADMINISTRATION Patient c/o right leg pain PRN Motrin 400 mg 1 tab administrated as ordered with full glass of water. Addendum: 03/24/17 at 1535 by DIONISIO CM RN ARMINDA Motrin 600 mg 1 tab administrated for left leg pain
--- NOTE | 2017-03-23 14:15 | NUR ---
RE-ASSESSMENT Patient is sleeping. Respirations even and unlabored. RR:16. PRN Motrin PO and PRN Vistaril PO were effective.effective. All needs met. Safety measures on place. Call light within reach, bed in lowest position and locked, padded rails up bilaterally rails up bilaterally. Will continue to monitor closely.
[2017-03-23] MEDS ORDERED: KETOROLAC TROMETHAMINE 30 MG INJ IM PRN (15:30)
[2017-03-23 16:00] VITALS: BP 142/88
--- NOTE | 2017-03-23 19:19 | NUR ---
END OF SHIFT NOTE: Patient is a 22 year old male admitted to [facility] on 03/18/2017 for Alcohol, Opioid, and Methamphetamine dependence. Patient continues 5 Day Ativan and 5 Day Subutex Taper. Patient tolerated well without ASE. Patient reported NKA, is on Full code, Regular Diet. Patient placed on Fall and Seizures Precautions. PMH: Anxiety, Asthma, Depression, Hepatitis C, HTN, Left Ankle injury, Seizure History in 2016. Last COWS 7, CIWA 5 @1600. Patient presented with anxiety, agitation, nervousness, tremors that can be felt, restlessness, nasal stuffy/moist eyes, and barely sweating. Patient denies SI/HI. Last VS @1600: T:98.3, HR: 64, BP: 142/88, RA SPO2 98%, RR 18, right leg pain level "7/10". Respirations are even and unlabored. Patient denied SOB and chest pain. Abdomen is soft and non-tender. Skin is warm and dry to touch. Patient has multiple scabs on Face and Back. Patient uses walker on Left leg. Left leg elevated when patient in the bed. PRN Motrin 400 mg 1 tab administrated for right leg pain @ 1315 and PRN Vistaril 50 mg 2 capsules PO administrated for anxiety @1315 were effective. Patient intake 2,243 ml, voided x3, stool x1. Encouraged fluids intake as tolerated. Encouraged to attend groups activities. All needs met. Safety measures in place: Call light within reach, bed is locked and in the lowest position, padded bed rails up x2. Patient endorsed to nuclear control room operator nurse. Report given. Addendum: 03/24/17 at 1534 by DIONISIO CM RN PRN Motrin 600 mg 1 tab administrated for left leg pain @ 1315 Addendum: 03/24/17 at 1538 by DIONISIO CM RN Last VS @1600: T:98.3, HR: 64, BP: 142/88, RA SPO2 98%, RR 18, left leg pain level "710".
--- NOTE | 2017-03-23 19:20 | NUR ---
Start of Shift Note: Patient is a 22 y/o male admitted on 03/18/17 fopr Heroin, ETOH and Meth dependence. Patient reported with PMHx of herpes, Asthma, Anxiety, Hep C, HTN, Depression, Left ankle injury and Seizure a year ago. Seizure and Fall precaution noted. Patient is on a 5-day Ativan and 5-day Subutex taper and tolerating well. Last COWS 7 CIWA 5. Pt received PRN Motrin & Vistaril during day shift. Patient is alert & oriented x4. Pt has a left ankle injury. Walker boots needs to be on when ambulating. Patient stable. No shortness of breath noted. Respiration even & unlabored. Abdomen soft & non-distended. No nausea noted. Pt presented with complaints of sweating, chills & anxiety. Pt complained of 8/10 left ankle pain. Slight hand tremors felt but not seen. Pt denies any hallucinations. Safety measures in place. Bed locked in lowest position. Both side rails up. Call light within pt's reach. Will continue to monitor patient.
[2017-03-23 20:00] VITALS: BP 107/80
[2017-03-23] MEDS: QUETIAPINE FUMARATE 25 MG TABLET PO PRN (20:51)
[2017-03-23] MEDS: GABAPENTIN 400 MG CAPSULE PO SCH (20:51)
[2017-03-23] MEDS: CLONIDINE HCL 0.1 MG TABLET PO SCH (20:52)
[2017-03-23] MEDS: ESCITALOPRAM OXALATE 10 MG TABLET PO SCH (20:52)
[2017-03-23] MEDS: MIRTAZAPINE 15 MG TABLET PO SCH (20:53)
--- NOTE | 2017-03-23 20:53 | NUR ---
PRN Seroquel & Toradol Patient complains of 8/10 left ankle pain. Patient noted to be restless in bed with facial grimacing noted. Pt also unable to fall asleep d/t pain. PRN Toradol IM administered on left deltoid and Seroquel PO administered as ordered. Will continue to monitor patient.
--- NOTE | 2017-03-23 21:53 | NUR ---
PRN Reassessment PRN medication effective. Pt verbalized decreased in pain from 8/10 to 3/10. Pt in bed and appears comfortable. No facial grimacing noted. Will continue to monitor patient.
--- NOTE | 2017-03-24 07:06 | NUR ---
START OF SHIFT NOTE: Patient is a 22 year old male admitted on 03/18/2017 for Alcohol, Opioid, and Methamphetamine dependence, continues 5 Day Ativan and 5 Day Subutex Taper, and tolerated well without ASE. Patient reported NKA, is on Full code, Regular Diet, is on Fall and Seizures Precautions. PMH: Anxiety, Asthma, Depression, Hepatitis C, HTN, Left Ankle injury, Seizure History in 2016. Patient is alert and oriented x4. Patient denies SI/HI. COWS 6,CIWA 5. Patient presented with anxiety, agitation, nervousness, tremors that can be felt, restlessness, and sweating. VS WNL. Respirations are even and unlabored. Lung Sounds are clear throughout. Patient denied SOB and chest pain. Heart rate is regular, no murmur noted. Bowel Sounds are active in all four quadrants. Abdomen is soft and non-tender. Skin is warm and dry to touch All needs met. Safety measures on place. Call light within reach, bed in lowest position and locked, padded rails up bilaterally rails up bilaterally. Patient endorsed by power and recovery shift engineer nurse. Report received. Will continue to monitor closely.
--- NOTE | 2017-03-24 07:06 | NUR ---
End of Shift Note: Pt had an uneventful night. Pt continues on his Ativan & Subutex taper and tolerating well. Last COWS 6 CIWA 3. Pt received PRN Toradol IM for pain & Seroquel for sleep and was effective. Medications effective in controlling withdrawal symptoms. Continue to elevate pts left leg when in bed. Walker boots to be used when ambulating. Pt remains stable and vitals remains WNL. Pt is compliant with medications & treatment plan. Will continue to educate pt to increase fluid intake. Pt still asleep at this time. No s/s of distress noted. Pt slept for a total of 6 hours. Fluid intake:1210 ml. Voided 4x with no bowel movement. All needs attended met. Safety precautions are in place. Will endorse pt to day shift nurse.
[2017-03-24 08:00] VITALS: BP 110/62
[2017-03-24] MEDS: CLONIDINE HCL 0.1 MG TABLET PO SCH ×2 (08:53→20:20)
[2017-03-24] MEDS: FOLIC ACID 1 MG TABLET PO SCH (08:54)
[2017-03-24] MEDS: BUPRENORPHINE HCL 2 MG TAB.SUBL SL SCH ×2 (08:54→20:20)
[2017-03-24] MEDS: THIAMINE HCL 100 MG TABLET PO SCH (08:54)
[2017-03-24] MEDS: MULTIVITAMINS,THERAPEUTIC TABLET PO SCH (08:55)
[2017-03-24] MEDS: GABAPENTIN 400 MG CAPSULE PO SCH ×3 (08:55→20:19)
[2017-03-24] MEDS ORDERED: BUPRENORPHINE HCL 2 MG TAB.SUBL SL SCH (09:00)
[2017-03-24] MEDS: LORAZEPAM 1 MG TABLET PO SCH ×2 (09:01→20:20)
[2017-03-24] MEDS: VALACYCLOVIR HCL 500 MG TABLET PO SCH (09:03)
[2017-03-24 12:00] VITALS: BP 121/76
[2017-03-24] MEDS: IBUPROFEN 600 MG TABLET PO PRN ×2 (14:43→20:19)
--- NOTE | 2017-03-24 14:43 | NUR ---
PRN MOTRIN 600 MG 1 TAB PO ADMINISTRATION Patient c/o left leg pain "09/23". PRN Motrin 600 mg 1 tab administrated as ordered with full glass of water. Patient tolerated well. All needs met. Safety measures in place: Call light within reach, bed is locked and in the lowest position, padded bed rails up x2. Will continue to monitor closely.
--- NOTE | 2017-03-24 15:43 | NUR ---
RE-ASSESSMENT Patient reports left leg pain level "decreased" from "6/10" to "2/10". PRN Motrin PO administrated @ 1443 was effective. All needs met. Safety measures on place. Call light within reach, bed in lowest position and locked, padded rails up bilaterally rails up bilaterally. Will continue to monitor closely.
[2017-03-24 16:00] VITALS: BP 116/76
--- NOTE | 2017-03-24 16:41 | NUR ---
Therapist prompted client to come to group. Client agreed.
--- NOTE | 2017-03-24 19:01 | NUR ---
END OF SHIFT NOTE: Endorsed patient is a 22 year old male admitted for Alcohol, Opioid, and Methamphetamine dependence continues 5 Day Ativan and 5 Day Subutex Taper. Patient tolerated well without ASE. Patient reported NKA, he is on Full code, Regular Diet, Fall and Seizures Precautions. Last COWS 8, CIWA 6 @1600. Patient presented with anxiety, agitation, nervousness, tremors that can be felt, restlessness, nasal stuffy/moist eyes, and barely sweating. Last VS @1600: T:98.1, HR: 68, BP: 116/78, RA SPO2 100%, RR 18, left foot pain level "5/10". Respirations are even and unlabored. Patient denied cough, SOB and chest pain. Abdomen is soft and non-tender. Skin is warm and dry to touch. Patient has multiple scabs on Face and Back. Patient uses walker on Left leg. Left leg elevated when patient in the bed. PRN Motrin 600 mg 1 tab administrated for left leg pain @ 1443 was effective. Patient intake 2,075 ml, voided x3. Encouraged fluids intake as tolerated. Encouraged to attend groups activities. All needs met. Safety measures in place: Call light within reach, bed is locked and in the lowest position, padded bed rails up x2. Report given to plant operator/shift supervisor nurse.
--- NOTE | 2017-03-24 19:15 | NUR ---
Start of Shift Note: Patient is a 22 y/o male admitted on 03/18/17 for Heroin, ETOH and Meth dependence. Patient reported with PMHx of herpes, Asthma, Anxiety, Hep C, HTN, Depression, Left ankle injury and Seizure a year ago. Seizure and Fall precaution noted. Patient is on a 5-day Ativan and 5-day Subutex taper and tolerating well. Last COWS 8 CIWA 6. Pt received PRN Motrin during day shift. Patient is alert & oriented x4. Pt has a left ankle injury. Walker boots used when ambulating. Patient stable. No shortness of breath noted. Respiration even & unlabored. Abdomen soft & non-distended. No nausea noted. Pt presented with complaints of sweating, restless legs, 4/10 generalized body aches & anxiety. Pt complained of 6/10 left ankle pain. Slight hand tremors noted. Pt denies any hallucinations. Safety measures in place. Bed locked in lowest position. Both side rails up. Call light within pt's reach. Will continue to monitor patient.
[2017-03-24 20:00] VITALS: BP_SYST 122; BP_DIAS 68; BP_DIAS 78
[2017-03-24] MEDS: MIRTAZAPINE 15 MG TABLET PO SCH (20:20)
[2017-03-24] MEDS: ESCITALOPRAM OXALATE 10 MG TABLET PO SCH (20:20)
[2017-03-24] MEDS: QUETIAPINE FUMARATE 25 MG TABLET PO PRN (20:20)
--- NOTE | 2017-03-24 20:20 | NUR ---
PRN Seroquel & Motrin Patient complains of 6/10 left ankle pain. Pt also unable to fall asleep d/t pain. Non-pharmacological intervention provided but not effective. PRN Motrin PO and Seroquel PO administered as ordered. Will continue to monitor patient.
[2017-03-24] MEDS: NICOTINE POLACRILEX 4 MG GUM-PK OF TEN BC PRN (22:25)
[2017-03-25 08:00] VITALS: BP 135/75
--- NOTE | 2017-03-25 08:17 | NUR ---
Start of shift note; Received report from night nurse. Patient is a 22 year old male admitted on 03/18/17 for Opiate andETOH dependence. Patient was placed on Ativan and Subutex tapers, no adverse reactions noted. Patient reported history of herpes, asthma, anxiety, Hep C, Hypertension, depression, seizure and reported left ankle injury. Orthopedic MD ordered cam boot for patient's left foot. NKA, on full code status, regular diet. Patient slept for 6 hours. Patient is on fall and seizure precaution. Bed in lowest position, call light within reach. Will continue to monitor patient.
[2017-03-25] MEDS: GABAPENTIN 400 MG CAPSULE PO SCH (08:29)
[2017-03-25] MEDS: CLONIDINE HCL 0.1 MG TABLET PO SCH ×2 (08:29→21:32)
[2017-03-25] MEDS: THIAMINE HCL 100 MG TABLET PO SCH (08:29)
[2017-03-25] MEDS: MULTIVITAMINS,THERAPEUTIC TABLET PO SCH (08:29)
[2017-03-25] MEDS: FOLIC ACID 1 MG TABLET PO SCH (08:29)
[2017-03-25] MEDS: VALACYCLOVIR HCL 500 MG TABLET PO SCH (08:30)
[2017-03-25] MEDS ORDERED: LORAZEPAM 1 MG TABLET PO SCH (09:00)
[2017-03-25] MEDS ORDERED: BUPRENORPHINE HCL 2 MG TAB.SUBL SL SCH (09:00)
[2017-03-25 12:00] VITALS: BP 140/56
[2017-03-25] MEDS: GABAPENTIN 300 MG CAPSULE PO SCH ×2 (14:15→21:33)
[2017-03-25 16:00] VITALS: BP 116/58
--- NOTE | 2017-03-25 18:20 | NUR ---
End of shift note; Patient is AOx4. Patient is a 22 year old male admitted on 03/18/17 for Opiate and ETOH dependence. Patient to start Ativan and Subutex tapers today. Patient reported history of herpes, asthma, anxiety, Hep C, Hypertension, depression, seizure and reported left ankle injury, Cam boot applied on patient. Educated patient to elevate affected foot and weight bearing as tolerated, patient verbalized understanding. Patient remained compliant with treatment plan and medication regime. Patient is medically cleared for discharge tomorrow. All safety measures secured. Met all needs.
[2017-03-25 20:00] VITALS: BP 121/83
--- NOTE | 2017-03-25 20:00 | NUR ---
1999 Patient received awake, alert and just returning to his room # [id number] from [facility] group in recreation room. Patient's gait is brisk and steady, and Cam Boot is in place on his left foot. Patient responds to nurse's greeting and introduction with, " Tabitha, how are you? You my nurse now?" Patient is oriented to person, place, day, date, time and his personal situation. Patient's skin is clean, warm, dry and intact. Patient denies any pain or other discomforts at this time and he offers no requests for anything. Patient states that he has been drinking fluids ad anila and eating his regular diet meal trays and snacks with no gastric issues noted. Patient states that he continues to regularly attend all [facility] groups and he states further that, " I'm going to a sober living place tomorrow". Patient then spoke briefly about his addiction and his efforts to get and stay sober. Patient allowed to ventilate his feelings and positive encouragement given to him, along with praise for his continued efforts to get and stay sober. Patient states, " Thank you". Vital signs are: [id number] 121/83, O2 Sat 98%, COWS 2, CIWA 2. Patient was admitted on 03/18/17 for Heroin, Alcohol and Methamphetamine withdrawal and he has completed both a 5-Day Ativan and a 5-Day Subutex taper at this time. Fall/seizure precautions continue. Patient is cooperative and verbally appropriate when interacting with nurse, though his overall manner is quiet. Bed is locked and in lowest position, bed rails are up X 2 and call light on bed.
[2017-03-25] MEDS ORDERED: CLON0.1T14 PO (20:24)
[2017-03-25] MEDS ORDERED: HYDR-3895 PO (20:24)
[2017-03-25] MEDS ORDERED: IBUP-1955 PO (20:24)
[2017-03-25] MEDS ORDERED: VALA500T PO (20:24)
[2017-03-25] MEDS ORDERED: GABA-534 PO (20:24)
[2017-03-25] MEDS ORDERED: METH-406 PO (20:24)
[2017-03-25] MEDS ORDERED: ESCI10TA PO (20:24)
[2017-03-25] MEDS ORDERED: MIRT15TA7 PO (20:24)
[2017-03-25] MEDS ORDERED: QUET25TA PO (20:24)
[2017-03-25] MEDS: MIRTAZAPINE 15 MG TABLET PO SCH (21:33)
[2017-03-25] MEDS: ESCITALOPRAM OXALATE 10 MG TABLET PO SCH (21:33)
[2017-03-25] MEDS: QUETIAPINE FUMARATE 25 MG TABLET PO PRN (21:43)
--- NOTE | 2017-03-25 21:43 | NUR ---
PRN MEDICATION: Prn Seroquel 50 mg p.o. given per request for sleep medication.
[2017-03-25] MEDS: HYDROXYZINE PAMOATE 25 MG CAPSULE PO PRN (21:44)
--- NOTE | 2017-03-25 21:44 | NUR ---
PRN MEDICATION: Prn Vistaril 50 mg p.o. given per request for c/o anxiety.
--- NOTE | 2017-03-25 22:44 | NUR ---
REASSESSMENT PRN MEDICATION: Patient is resting comfortably with eyes closed and respirations quiet, even, unlabored at 12.
--- NOTE | 2017-03-26 | NUR ---
Patient sleeping comfortably with eyes closed and respirations quiet, deep, even at 12. Patient does not wish to be awakened for vital signs to be done at this time. COWS, CIWA ordered Q 4hrs while awake.
--- NOTE | 2017-03-26 04:00 | NUR ---
Patient continues to sleep comfortably with eyes closed and respirations even, unlabored at 12. V/S, COWS, CIWA deferred.
--- NOTE | 2017-03-26 06:30 | NUR ---
0630 Patient slept a total of 6 hours and he had 3 voids and 1 stools. Total intake was 1,500 ml p.o. Prn medications given noted separately per floor protocol. V/SS afebrile, last COWS 2, last CIWA 2 at 1999. Patient is presently resting comfortably in stable condition with eyes closed and respirations unlabored at 12.
[2017-03-26 08:00] VITALS: BP 102/68
--- NOTE | 2017-03-26 08:01 | NUR ---
Start of shift note; Received report from night nurse. Patient is a 22 year old male admitted on 03/18/17 for Opiate and ETOH dependence. Patient was placed on Ativan and Subutex tapers, no adverse reactions noted. Patient reported history of herpes, asthma, anxiety, Hep C, Hypertension, depression, seizure and reported left ankle injury. Orthopedic MD ordered cam boot for patient's left foot. NKA, on full code status, regular diet. Patient's last COWS is 2 and last CIWA is 2. Patient slept for 8 hours. Patient is on fall and seizure precaution. Bed in lowest position, call light within reach. Will continue to monitor patient.
[2017-03-26 08:24] VITALS: BP 118/68
[2017-03-26] MEDS: VALACYCLOVIR HCL 500 MG TABLET PO SCH (08:24)
[2017-03-26] MEDS: CLONIDINE HCL 0.1 MG TABLET PO SCH (08:24)
[2017-03-26] MEDS: THIAMINE HCL 100 MG TABLET PO SCH (08:24)
[2017-03-26] MEDS: GABAPENTIN 300 MG CAPSULE PO SCH (08:24)
[2017-03-26] MEDS: FOLIC ACID 1 MG TABLET PO SCH (08:24)
[2017-03-26] MEDS: MULTIVITAMINS,THERAPEUTIC TABLET PO SCH (08:24)
--- NOTE | 2017-03-26 09:52 | NUR ---
Discharge note; Patient is AOX4. Patient is medically cleared for discharge. Patient completed treatment without any adverse reactions. Educated patient regarding the proper use of walking boot, verbalized understanding. All valuables, belongings and medications given to patient. Patient denies suicidal ideations. Patient left the hospital at exactly 03/26/17 at 0952. Met all needs. Patient left in a stable condition.
== END 2017-03-26 09:52 | disposition other institution (70) | DRG 895 ==
LOC: SRC 20:47
PROVIDERS: ADMIT Internal Medicine; ATTEND Internal Medicine
DX: F10.230 Alcohol dependence with withdrawal, uncomplicated (principal); B00.1 Herpesviral vesicular dermatitis; S92.355A Nondisplaced fracture of fifth metatarsal bone, left foot, initial encounter for closed fracture; D64.9 Anemia, unspecified; B19.20 Unspecified viral hepatitis C without hepatic coma; F11.23 Opioid dependence with withdrawal; F15.23 Other stimulant dependence with withdrawal; W01.0XXA Fall on same level from slipping, tripping and stumbling without subsequent striking against object, initial encounter; Y90.9 Presence of alcohol in blood, level not specified; F41.9 Anxiety disorder, unspecified; F12.90 Cannabis use, unspecified, uncomplicated; F17.210 Nicotine dependence, cigarettes, uncomplicated; Z91.89 Other specified personal risk factors, not elsewhere classified; Y92.89 Other specified places as the place of occurrence of the external cause; G47.00 Insomnia, unspecified; Z59.0 Homelessness; J45.20 Mild intermittent asthma, uncomplicated; F32.9 Major depressive disorder, single episode, unspecified
CPT/HCPCS: 36415; 70030-TC; 73610; 73630; 80307; 80324; 80346; 80349; 80361; 83690; 83735; 84443; 85025; 86580; 86592; 86705; 86803; 87340; 87806; 97530; A4663; G0480; J1885; J3411

== ENCOUNTER 2017-07-13 14:21 | Inpatient (IN) | payer OTHER ==
[~2017-07-13] VITALS: Ht 182.9 cm; Wt 79.4 kg
[~2017-07-13 14:21] MED LIST changes: -DICY20TA28 PO; +ESCI10TA PO; +QUET25TA PO; +VALA500T PO
[2017-07-13] MEDS ORDERED: DIAZEPAM 5 MG TABLET PO PRN (19:00)
[2017-07-13] MEDS ORDERED: MAG HYDROX/AL HYDROX/SIMETH 30 ML LIQUID UDC PO PRN (19:00)
[2017-07-13] MEDS ORDERED: THIAMINE HCL 200 MG/2 ML VIAL IM ONE (19:00)
[2017-07-13] MEDS ORDERED: LOPERAMIDE HCL 2 MG CAPSULE PO PRN ×2 (19:00)
[2017-07-13] MEDS ORDERED: DICYCLOMINE HCL 20 MG TABLET PO PRN (19:00)
[2017-07-13] MEDS ORDERED: CLONIDINE HCL 0.1 MG TABLET PO PRN (19:00)
[2017-07-13] MEDS ORDERED: MIRALAX 17 GM POWD.PACK PO PRN (19:00)
[2017-07-13] MEDS ORDERED: ONDANSETRON ODT 4 MG TAB.RAPDIS SL PRN (19:00)
[2017-07-13] MEDS ORDERED: DIAZEPAM 10 MG TABLET PO PRN (19:00)
[2017-07-13] MEDS ORDERED: MAGNESIUM HYDROXIDE 30 ML LIQUID UDC PO PRN (19:00)
[2017-07-13] MEDS ORDERED: diphenhydrAMINE 50 MG CAPSULE PO PRN (19:00)
[2017-07-13] MEDS ORDERED: ACETAMINOPHEN 325 MG TABLET PO PRN (19:00)
[2017-07-13] MEDS ORDERED: ONDANSETRON 4 MG/2 ML VIAL IM PRN (19:00)
[2017-07-13] MEDS ORDERED: BUPRENORPHINE HCL 2 MG TAB.SUBL SL PRN (19:00)
[2017-07-13] MEDS ORDERED: THIAMINE HCL 100 MG TABLET PO ONE (19:15)
[2017-07-13 19:55] LABS: BASOPHILS # (AUTO) 0.1 K/uL (0.0-8.0); BASOPHILS % (AUTO) 0.6 % (0.0-2.0); EOSINOPHILS # (AUTO) 0.4 K/uL (0.0-0.7); EOSINOPHILS % (AUTO) 3.9 % (0.0-7.0); HEMATOCRIT 45.1 % (36.7-47.1); HEMOGLOBIN 15.2 g/dL (12.5-16.3); LYMPHOCYTES % (AUTO) 37.6 % (20.5-51.5); MEAN CORPUSCULAR HEMOGLOBIN 28.8 uug (23.8-33.4); MEAN CORPUSCULAR HGB CONC 34 g/dL (32.5-36.3); MEAN CORPUSCULAR VOLUME 85.7 fL (73.0-96.2); MONOCYTES # (AUTO) 1.2 K/uL (2.0-10.0); MONOCYTES % (AUTO) 10.9 % (0.0-11.0); PLATELET COUNT (AUTO) 280 K/uL (152-348); RED BLOOD CELL COUNT(AUTO) 5.27 MIL/uL (4.06-5.63); WHITE BLOOD COUNT (AUTO) 10.7 K/uL (3.6-10.2)
[2017-07-13 20:00] VITALS: BP 127/81
[2017-07-13 20:01] LABS: ALANINE AMINOTRANSFERASE 49 U/L (16-63); ALKALINE PHOSPHATASE 122 U/L (50-136); AMYLASE 33 U/L (25-115); ASPARTATE AMINOTRANSFERASE 33 U/L (15-37); BILIRUBIN,TOTAL 0.6 mg/dL (0.2-1.0); CARBON DIOXIDE 29 mmol/L (21-32); CHLORIDE 100 mmol/L (98-107); CREATININE 1.3 mg/dL (0.6-1.3); GLUCOSE 97 mg/dL (74-106); MAGNESIUM 2.1 mg/dL (1.8-2.4); TOTAL PROTEIN, SERUM 8.4 g/dL (6.4-8.2); UREA NITROGEN, BLOOD 17 mg/dL (7-18)
[2017-07-13 20:11] LABS: ETHANOL < 3 MG/DL (0-0)
[2017-07-13] MEDS ORDERED: MIRT45TA PO (20:19)
[2017-07-13] MEDS ORDERED: DIAZEPAM 10 MG TABLET PO SCH (21:00)
[2017-07-13] MEDS: CEPHALEXIN MONOHYDRATE 500 MG CAPSULE PO SCH (21:05)
[2017-07-13] MEDS: LACTOBACILLUS RHAMNOSUS GG 1 EACH CAPSULE PO SCH (21:08)
[2017-07-13] MEDS: SULFAMETH/TRIMETH 800/160 MG TABLET PO SCH (21:08)
[2017-07-13] MEDS: GABAPENTIN 300 MG CAPSULE PO SCH (21:10)
[2017-07-13 21:52] LABS: *AMPHETAMINE, URINE POSITIVE (NEGATIVE); *BARBITURATE, URINE NEGATIVE (NEGATIVE); *CANNABINOID, URINE POSITIVE (NEGATIVE); *COCCAINE, URINE NEGATIVE (NEGATIVE); *OPIATE, URINE POSITIVE (NEGATIVE); *PHENCYCLIDINE SCREEN,URINE NEGATIVE (NEGATIVE)
[2017-07-14] VITALS: BP 118/63
[2017-07-14] MEDS ORDERED: LISI10TA5 PO (00:52)
[2017-07-14 04:00] VITALS: BP 112/58
[2017-07-14 08:00] VITALS: BP 129/83
[2017-07-14] MEDS ORDERED: DIAZEPAM 10 MG TABLET PO SCH (09:00)
[2017-07-14] MEDS ORDERED: TUBERCULIN,PURIF.PROT.DERIV. 5 TU/0.1 ML TEST ID ONE (09:00)
[2017-07-14] MEDS: LACTOBACILLUS RHAMNOSUS GG 1 EACH CAPSULE PO SCH ×2 (09:34→20:25)
[2017-07-14] MEDS: FOLIC ACID 1 MG TABLET PO SCH (09:34)
[2017-07-14] MEDS: SULFAMETH/TRIMETH 800/160 MG TABLET PO SCH ×2 (09:34→20:24)
[2017-07-14] MEDS: CEPHALEXIN MONOHYDRATE 500 MG CAPSULE PO SCH ×3 (09:34→20:25)
[2017-07-14] MEDS: MULTIVITAMINS,THERAPEUTIC TABLET PO SCH (09:34)
[2017-07-14] MEDS: GABAPENTIN 300 MG CAPSULE PO SCH ×3 (09:34→20:25)
[2017-07-14] MEDS: BUPRENORPHINE HCL 2 MG TAB.SUBL SL SCH ×4 (09:35→20:26)
[2017-07-14] MEDS: THIAMINE HCL 100 MG TABLET PO SCH (09:35)
[2017-07-14] MEDS: METHOCARBAMOL 750 MG TABLET PO PRN (09:42)
[2017-07-14] MEDS: IBUPROFEN 600 MG TABLET PO PRN (09:42)
[2017-07-14] MEDS: DIAZEPAM 10 MG TABLET PO PRN (10:30)
[2017-07-14 12:00] VITALS: BP 139/78
[2017-07-14] MEDS: VALACYCLOVIR 500 MG PO SCH (12:04)
[2017-07-14] MEDS: DIAZEPAM 10 MG TABLET PO SCH ×3 (12:48→20:24)
[2017-07-14 16:00] VITALS: BP 127/73
[2017-07-14 20:20] VITALS: BP 137/86
[2017-07-14] MEDS: QUETIAPINE FUMARATE 25 MG TABLET PO PRN (21:52)
[2017-07-14] MEDS: MIRTAZAPINE 15 MG TABLET PO SCH (21:52)
[2017-07-15] VITALS: BP 112/82
[2017-07-15 04:00] VITALS: BP 108/74
[2017-07-15 08:00] VITALS: BP 114/69
[2017-07-15] MEDS: GABAPENTIN 300 MG CAPSULE PO SCH ×4 (08:49→21:45)
[2017-07-15] MEDS: SULFAMETH/TRIMETH 800/160 MG TABLET PO SCH ×2 (08:49→21:45)
[2017-07-15] MEDS: IBUPROFEN 600 MG TABLET PO PRN (08:49)
[2017-07-15] MEDS: CEPHALEXIN MONOHYDRATE 500 MG CAPSULE PO SCH ×3 (08:49→21:45)
[2017-07-15] MEDS: METHOCARBAMOL 750 MG TABLET PO PRN (08:49)
[2017-07-15] MEDS: LACTOBACILLUS RHAMNOSUS GG 1 EACH CAPSULE PO SCH ×2 (08:49→21:45)
[2017-07-15] MEDS: MULTIVITAMINS,THERAPEUTIC TABLET PO SCH (08:49)
[2017-07-15] MEDS: THIAMINE HCL 100 MG TABLET PO SCH (08:49)
[2017-07-15] MEDS: FOLIC ACID 1 MG TABLET PO SCH (08:49)
[2017-07-15] MEDS: BUPRENORPHINE HCL 2 MG TAB.SUBL SL SCH ×3 (08:50→20:15)
[2017-07-15] MEDS ORDERED: DIAZEPAM 10 MG TABLET PO SCH ×4 (09:00→21:00)
[2017-07-15] MEDS: VALACYCLOVIR 500 MG PO SCH (09:00)
[2017-07-15 09:08] LABS: HEPATITIS B SURFACE AG Negative (Negative)
[2017-07-15] MEDS ORDERED: BUPRENORPHINE HCL 2 MG TAB.SUBL SL ONE (10:15)
[2017-07-15] MEDS ORDERED: DIAZEPAM 10 MG TABLET PO ONE (10:15)
[2017-07-15 12:00] VITALS: BP 113/71
[2017-07-15] MEDS ORDERED: CLONIDINE HCL 0.2 MG TABLET PO ONE (13:15)
[2017-07-15] MEDS ORDERED: BUPRENORPHINE HCL 2 MG TAB.SUBL SL PRN (13:15)
[2017-07-15] MEDS ORDERED: KETOROLAC TROMETHAMINE 30 MG INJ IM ONE (13:15)
[2017-07-15] MEDS: DIAZEPAM 10 MG TABLET PO PRN (13:29)
[2017-07-15 16:00] VITALS: BP 118/72
[2017-07-15] MEDS ORDERED: QUETIAPINE FUMARATE 25 MG TABLET PO PRN (16:45)
[2017-07-15] MEDS: DIAZEPAM 10 MG TABLET PO SCH ×2 (17:39→20:15)
[2017-07-15 20:00] VITALS: BP 131/81
[2017-07-15] MEDS: QUETIAPINE FUMARATE 25 MG TABLET PO PRN (21:45)
[2017-07-15] MEDS: MIRTAZAPINE 15 MG TABLET PO SCH (21:45)
[2017-07-15] MEDS: BACLOFEN 10 MG TABLET PO SCH (21:45)
[2017-07-15] MEDS: CLONIDINE HCL 0.1 MG TABLET PO SCH (21:46)
[2017-07-16] VITALS: BP 129/75
[2017-07-16 04:00] VITALS: BP 105/59
[2017-07-16] MEDS: SULFAMETH/TRIMETH 800/160 MG TABLET PO SCH ×2 (08:37→21:11)
[2017-07-16] MEDS: CEPHALEXIN MONOHYDRATE 500 MG CAPSULE PO SCH ×3 (08:38→21:10)
[2017-07-16] MEDS: DIAZEPAM 10 MG TABLET PO SCH ×3 (08:38→21:12)
[2017-07-16] MEDS: LACTOBACILLUS RHAMNOSUS GG 1 EACH CAPSULE PO SCH ×2 (08:38→21:11)
[2017-07-16] MEDS: BACLOFEN 10 MG TABLET PO SCH ×3 (08:38→21:11)
[2017-07-16] MEDS: GABAPENTIN 300 MG CAPSULE PO SCH ×4 (08:38→21:11)
[2017-07-16] MEDS: THIAMINE HCL 100 MG TABLET PO SCH (08:38)
[2017-07-16] MEDS: MULTIVITAMINS,THERAPEUTIC TABLET PO SCH (08:38)
[2017-07-16] MEDS: FOLIC ACID 1 MG TABLET PO SCH (08:38)
[2017-07-16] MEDS: CLONIDINE HCL 0.1 MG TABLET PO SCH ×3 (08:38→21:11)
[2017-07-16] MEDS ORDERED: BUPRENORPHINE HCL 2 MG TAB.SUBL SL SCH (09:00)
[2017-07-16] MEDS ORDERED: DIAZEPAM 5 MG TABLET PO SCH (09:00)
[2017-07-16 09:14] VITALS: BP 109/66
[2017-07-16] MEDS: VALACYCLOVIR 500 MG PO SCH (09:31)
[2017-07-16] MEDS: OXCARBAZEPINE 150 MG TABLET PO ONE ×2 (11:16→12:02)
[2017-07-16] MEDS ORDERED: BUPRENORPHINE HCL 2 MG TAB.SUBL SL ONE (12:00)
[2017-07-16 12:17] VITALS: BP 121/65
[2017-07-16] MEDS: BUPRENORPHINE HCL 2 MG TAB.SUBL SL SCH ×2 (14:09→21:12)
[2017-07-16 16:00] VITALS: BP 120/64
[2017-07-16 20:00] VITALS: BP 115/73
[2017-07-16] MEDS: OXCARBAZEPINE 150 MG TABLET PO SCH (21:11)
[2017-07-16] MEDS: MIRTAZAPINE 15 MG TABLET PO SCH (21:12)
[2017-07-16] MEDS: QUETIAPINE FUMARATE 25 MG TABLET PO PRN (22:16)
[2017-07-16] MEDS: METHOCARBAMOL 750 MG TABLET PO PRN (22:19)
[2017-07-17 08:00] VITALS: BP 102/66
[2017-07-17] MEDS ORDERED: BUPRENORPHINE HCL 2 MG TAB.SUBL SL SCH (09:00)
[2017-07-17] MEDS ORDERED: DIAZEPAM 5 MG TABLET PO SCH ×2 (09:00→17:00)
[2017-07-17] MEDS: GABAPENTIN 300 MG CAPSULE PO SCH ×4 (09:09→20:41)
[2017-07-17] MEDS: CLONIDINE HCL 0.1 MG TABLET PO SCH ×2 (09:10→15:42)
[2017-07-17] MEDS: SULFAMETH/TRIMETH 800/160 MG TABLET PO SCH ×2 (09:10→20:41)
[2017-07-17] MEDS: BACLOFEN 10 MG TABLET PO SCH (09:10)
[2017-07-17] MEDS: OXCARBAZEPINE 150 MG TABLET PO SCH (09:11)
[2017-07-17] MEDS: CEPHALEXIN MONOHYDRATE 500 MG CAPSULE PO SCH ×3 (09:11→20:43)
[2017-07-17] MEDS: LACTOBACILLUS RHAMNOSUS GG 1 EACH CAPSULE PO SCH ×2 (09:11→20:42)
[2017-07-17] MEDS: FOLIC ACID 1 MG TABLET PO SCH (09:11)
[2017-07-17] MEDS: DIAZEPAM 5 MG TABLET PO SCH ×2 (09:11→12:34)
[2017-07-17] MEDS: THIAMINE HCL 100 MG TABLET PO SCH (09:11)
[2017-07-17] MEDS: MULTIVITAMINS,THERAPEUTIC TABLET PO SCH (09:11)
[2017-07-17] MEDS: VALACYCLOVIR 500 MG PO SCH (09:38)
[2017-07-17 12:00] VITALS: BP 120/78
[2017-07-17] MEDS ORDERED: BUPRENORPHINE HCL 2 MG TAB.SUBL SL ONE (13:00)
[2017-07-17] MEDS ORDERED: DIAZEPAM 10 MG TABLET PO ONE (13:00)
[2017-07-17] MEDS: BACLOFEN 20 MG TABLET PO SCH ×2 (15:37→20:43)
[2017-07-17 16:00] VITALS: BP 103/67
[2017-07-17] MEDS: KETOROLAC TROMETHAMINE 30 MG INJ IM PRN ×2 (17:52→20:45)
[2017-07-17] MEDS: BUPRENORPHINE HCL 2 MG TAB.SUBL SL SCH ×2 (17:54→20:42)
[2017-07-17 20:00] VITALS: BP 106/71
[2017-07-17] MEDS: MIRTAZAPINE 15 MG TABLET PO SCH (20:42)
[2017-07-17] MEDS: OXCARBAZEPINE 300 MG TABLET PO SCH (20:43)
[2017-07-17] MEDS: CLONIDINE HCL 0.2 MG TABLET PO SCH (20:44)
[2017-07-17] MEDS: QUETIAPINE FUMARATE 25 MG TABLET PO PRN (20:55)
[2017-07-17] MEDS ORDERED: DIAZEPAM 10 MG TABLET PO SCH (21:00)
[2017-07-17] MEDS ORDERED: NICOTINE POLACRILEX 4 MG GUM-PK OF TEN BC PRN (21:15)
[2017-07-18 08:00] VITALS: BP 125/71
[2017-07-18] MEDS ORDERED: DIAZEPAM 5 MG TABLET PO SCH (09:00)
[2017-07-18] MEDS ORDERED: BUPRENORPHINE HCL 2 MG TAB.SUBL SL SCH (09:00)
[2017-07-18] MEDS: VALACYCLOVIR 500 MG PO SCH (09:08)
[2017-07-18] MEDS: GABAPENTIN 300 MG CAPSULE PO SCH ×4 (09:08→21:00)
[2017-07-18] MEDS: BACLOFEN 20 MG TABLET PO SCH ×3 (09:08→21:00)
[2017-07-18] MEDS: OXCARBAZEPINE 150 MG TABLET PO SCH (09:08)
[2017-07-18] MEDS: THIAMINE HCL 100 MG TABLET PO SCH (09:08)
[2017-07-18] MEDS: CEPHALEXIN MONOHYDRATE 500 MG CAPSULE PO SCH ×3 (09:09→21:00)
[2017-07-18] MEDS: BUPRENORPHINE HCL 2 MG TAB.SUBL SL SCH ×3 (09:09→21:00)
[2017-07-18] MEDS: LACTOBACILLUS RHAMNOSUS GG 1 EACH CAPSULE PO SCH ×2 (09:09→21:00)
[2017-07-18] MEDS: MULTIVITAMINS,THERAPEUTIC TABLET PO SCH (09:09)
[2017-07-18] MEDS: DIAZEPAM 5 MG TABLET PO SCH ×3 (09:09→21:00)
[2017-07-18] MEDS: FOLIC ACID 1 MG TABLET PO SCH (09:09)
[2017-07-18] MEDS: CLONIDINE HCL 0.1 MG TABLET PO SCH ×2 (09:09→14:14)
[2017-07-18] MEDS: SULFAMETH/TRIMETH 800/160 MG TABLET PO SCH ×2 (09:09→21:00)
[2017-07-18 12:00] VITALS: BP 118/63
[2017-07-18] MEDS: KETOROLAC TROMETHAMINE 30 MG INJ IM PRN (13:16)
[2017-07-18 16:00] VITALS: BP 119/68
[2017-07-18 20:30] VITALS: BP 108/74
[2017-07-18] MEDS: OXCARBAZEPINE 300 MG TABLET PO SCH (21:00)
[2017-07-18] MEDS: MIRTAZAPINE 15 MG TABLET PO SCH (21:00)
[2017-07-18] MEDS: CLONIDINE HCL 0.2 MG TABLET PO SCH (21:00)
[2017-07-19 00:27] VITALS: BP 103/61
[2017-07-19 04:04] VITALS: BP 105/69
[2017-07-19 08:19] VITALS: BP 140/72
[2017-07-19] MEDS: GABAPENTIN 300 MG CAPSULE PO SCH ×4 (08:32→22:04)
[2017-07-19] MEDS: BACLOFEN 20 MG TABLET PO SCH ×3 (08:32→22:04)
[2017-07-19] MEDS: CEPHALEXIN MONOHYDRATE 500 MG CAPSULE PO SCH ×3 (08:32→22:04)
[2017-07-19] MEDS: THIAMINE HCL 100 MG TABLET PO SCH (08:32)
[2017-07-19] MEDS: LACTOBACILLUS RHAMNOSUS GG 1 EACH CAPSULE PO SCH ×2 (08:32→22:04)
[2017-07-19] MEDS: IBUPROFEN 600 MG TABLET PO PRN (08:32)
[2017-07-19] MEDS: SULFAMETH/TRIMETH 800/160 MG TABLET PO SCH ×2 (08:32→22:03)
[2017-07-19] MEDS: MULTIVITAMINS,THERAPEUTIC TABLET PO SCH (08:32)
[2017-07-19] MEDS: FOLIC ACID 1 MG TABLET PO SCH (08:32)
[2017-07-19] MEDS: CLONIDINE HCL 0.1 MG TABLET PO SCH ×2 (08:32→14:17)
[2017-07-19] MEDS: OXCARBAZEPINE 150 MG TABLET PO SCH (08:32)
[2017-07-19] MEDS: VALACYCLOVIR 500 MG PO SCH (08:33)
[2017-07-19] MEDS ORDERED: DIAZEPAM 5 MG TABLET PO SCH (09:00)
[2017-07-19] MEDS ORDERED: BUPRENORPHINE HCL 2 MG TAB.SUBL SL SCH (09:00)
[2017-07-19] MEDS ORDERED: HYDROXYZINE PAMOATE 25 MG CAPSULE PO PRN (11:30)
[2017-07-19 12:47] VITALS: BP 126/61
[2017-07-19] MEDS ORDERED: METH-406 PO (13:43)
[2017-07-19] MEDS ORDERED: HYDR-3895 PO (13:43)
[2017-07-19] MEDS ORDERED: QUET25TA PO (13:43)
[2017-07-19] MEDS ORDERED: MIRT15TA7 PO (13:43)
[2017-07-19] MEDS ORDERED: GABA-534 PO (13:43)
[2017-07-19] MEDS ORDERED: CLON0.1T14 PO (13:43)
[2017-07-19] MEDS ORDERED: IBUP-1955 PO (13:43)
[2017-07-19] MEDS ORDERED: DICY20TA28 PO (13:43)
[2017-07-19] MEDS ORDERED: OXCA300T4 PO (13:43)
[2017-07-19] MEDS ORDERED: OXCA150T5 PO (13:43)
[2017-07-19 17:00] VITALS: BP 126/78
[2017-07-19] MEDS: METHOCARBAMOL 750 MG TABLET PO PRN (18:41)
[2017-07-19] MEDS: KETOROLAC TROMETHAMINE 30 MG INJ IM PRN (18:42)
[2017-07-19 20:00] VITALS: BP_SYST 118; BP_DIAS 64; BP_DIAS 72
[2017-07-19] MEDS: OXCARBAZEPINE 300 MG TABLET PO SCH (21:00)
[2017-07-19] MEDS: CLONIDINE HCL 0.2 MG TABLET PO SCH (22:03)
[2017-07-19] MEDS: MIRTAZAPINE 15 MG TABLET PO SCH (22:04)
[2017-07-19] MEDS: QUETIAPINE FUMARATE 25 MG TABLET PO PRN (22:09)
[2017-07-20] VITALS: BP 139/84
[2017-07-20] MEDS: GABAPENTIN 300 MG CAPSULE PO SCH (08:03)
[2017-07-20] MEDS: SULFAMETH/TRIMETH 800/160 MG TABLET PO SCH (08:03)
[2017-07-20] MEDS: VALACYCLOVIR 500 MG PO SCH (08:03)
[2017-07-20] MEDS: FOLIC ACID 1 MG TABLET PO SCH ×2 (08:03→08:13)
[2017-07-20] MEDS: MULTIVITAMINS,THERAPEUTIC TABLET PO SCH ×2 (08:03→08:13)
[2017-07-20 08:04] VITALS: BP 138/68
[2017-07-20] MEDS: CLONIDINE HCL 0.1 MG TABLET PO SCH (08:04)
[2017-07-20] MEDS: BACLOFEN 20 MG TABLET PO SCH (08:04)
[2017-07-20] MEDS: CEPHALEXIN MONOHYDRATE 500 MG CAPSULE PO SCH (08:04)
[2017-07-20] MEDS: LACTOBACILLUS RHAMNOSUS GG 1 EACH CAPSULE PO SCH (08:04)
[2017-07-20] MEDS: OXCARBAZEPINE 150 MG TABLET PO SCH ×2 (08:04→08:14)
[2017-07-20] MEDS: THIAMINE HCL 100 MG TABLET PO SCH (08:14)
== END 2017-07-20 08:30 | disposition home or self-care (01) | DRG 895 ==
LOC: SRC 18:20
PROVIDERS: ADMIT Internal Medicine; ATTEND Internal Medicine
PROC: HZ2ZZZZ Detoxification Services for Substance Abuse Treatment (ICD-10-PCS; principal; 2017-07-13)
PROC: HZ41ZZZ Group Counseling for Substance Abuse Treatment, Behavioral (ICD-10-PCS; 2017-07-14)
PROC: HZ31ZZZ Individual Counseling for Substance Abuse Treatment, Behavioral (ICD-10-PCS; 2017-07-16)
DX: F10.232 Alcohol dependence with withdrawal with perceptual disturbance (principal); Z86.74 Personal history of sudden cardiac arrest; L03.113 Cellulitis of right upper limb; F13.230 Sedative, hypnotic or anxiolytic dependence with withdrawal, uncomplicated; F11.23 Opioid dependence with withdrawal; F15.10 Other stimulant abuse, uncomplicated; Y90.0 Blood alcohol level of less than 20 mg/100 ml; B19.20 Unspecified viral hepatitis C without hepatic coma; Z81.1 Family history of alcohol abuse and dependence; F17.210 Nicotine dependence, cigarettes, uncomplicated; G47.00 Insomnia, unspecified; F12.90 Cannabis use, unspecified, uncomplicated; J45.20 Mild intermittent asthma, uncomplicated; Z91.5 Personal history of self-harm; S61.431S Puncture wound without foreign body of right hand, sequela; X78.8XXS Intentional self-harm by other sharp object, sequela; F41.0 Panic disorder [episodic paroxysmal anxiety]; F32.9 Major depressive disorder, single episode, unspecified; B00.1 Herpesviral vesicular dermatitis
CPT/HCPCS: 36415; 70030-TC; 80307; 80324; 80346; 80349; 80361; 83735; 85025; 86592; 86705; 86803; 87340; 87806; G0480; J1885

== ENCOUNTER 2017-10-02 16:51 | Inpatient (IN) | payer OTHER ==
[~2017-10-02] VITALS: Ht 185.4 cm; Wt 72.1 kg
[~2017-10-02 16:51] MED LIST changes: +DICY20TA28 PO; -ESCI10TA PO; +OXCA150T5 PO; +OXCA300T4 PO
--- NOTE | 2017-10-02 19:25 | NUR ---
INTAKE ASSESSMENT BP: 144/73, HR:84, SpO2:96% T:98 Pt is in stable condition and able to be admitted on the unit. Unit protocols regarding medications and vital signs every 4 hours were explained. Pt verbalized understanding. Will continue admission upon arrival on the unit.
[2017-10-02 19:30] VITALS: BP 144/73
[2017-10-02] MEDS ORDERED: MAGNESIUM HYDROXIDE 30 ML LIQUID UDC PO PRN (19:45)
[2017-10-02] MEDS ORDERED: LORAZEPAM 2 MG/1 ML VIAL IM PRN (19:45)
[2017-10-02] MEDS ORDERED: ONDANSETRON 4 MG/2 ML VIAL IM PRN (19:45)
[2017-10-02] MEDS ORDERED: DICYCLOMINE HCL 20 MG TABLET PO PRN (19:45)
[2017-10-02] MEDS ORDERED: ACETAMINOPHEN 325 MG TABLET PO PRN (19:45)
[2017-10-02] MEDS ORDERED: ONDANSETRON ODT 4 MG TAB.RAPDIS SL PRN (19:45)
[2017-10-02] MEDS ORDERED: BUPRENORPHINE HCL 2 MG TAB.SUBL SL PRN (19:45)
[2017-10-02] MEDS ORDERED: DIAZEPAM 10 MG TABLET PO PRN (19:45)
[2017-10-02] MEDS ORDERED: DIAZEPAM 5 MG TABLET PO PRN (19:45)
[2017-10-02] MEDS ORDERED: MAG HYDROX/AL HYDROX/SIMETH 30 ML LIQUID UDC PO PRN (19:45)
[2017-10-02] MEDS ORDERED: MIRALAX 17 GM POWD.PACK PO PRN (19:45)
[2017-10-02] MEDS ORDERED: LOPERAMIDE HCL 2 MG CAPSULE PO PRN ×2 (19:45)
[2017-10-02] MEDS ORDERED: CLONIDINE HCL 0.1 MG TABLET PO PRN (19:45)
[2017-10-02] MEDS ORDERED: THIAMINE HCL 200 MG/2 ML VIAL IM ONE (19:45)
[2017-10-02] MEDS ORDERED: diphenhydrAMINE 50 MG CAPSULE PO PRN (19:45)
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
[2017-10-02 20:21] LABS: *AMPHETAMINE, URINE POSITIVE (NEGATIVE); *BARBITURATE, URINE NEGATIVE (NEGATIVE); *CANNABINOID, URINE POSITIVE (NEGATIVE); *COCCAINE, URINE POSITIVE (NEGATIVE); *OPIATE, URINE POSITIVE (NEGATIVE); *PHENCYCLIDINE SCREEN,URINE NEGATIVE (NEGATIVE)
[2017-10-02] MEDS: GABAPENTIN 300 MG CAPSULE PO SCH (20:33)
[2017-10-02] MEDS: OXCARBAZEPINE 150 MG TABLET PO SCH (20:33)
--- NOTE | 2017-10-02 20:34 | NUR ---
PRN VALIUM Pt complains of anxiety, restlessness, agitation, clammy skin, and mild visual hallucinations. Pt reports " I'm not having opiate withdrawals yet, it's the benzo's" CIWA:17. PRN Valium 20 mg administered as ordered. Safety measures in place. Will monitor effectiveness.
[2017-10-02] MEDS ORDERED: PHENOBARBITAL 60 MG TABLET PO SCH (21:00)
--- NOTE | 2017-10-02 21:34 | NUR ---
PRN REASSESSMENT PRN Valium effective. Pt reports decrease in anxiety, agitation, and very mild visual hallucination. Pt reports " I was seeing small black dots" CIWA:11. Safety measures in place. Will continue to monitor.
[2017-10-02] MEDS ORDERED: QUETIAPINE FUMARATE 100 MG TABLET PO ONE (21:45)
[2017-10-02] MEDS ORDERED: MIRTAZAPINE 15 MG TABLET PO ONE (21:45)
[2017-10-02 21:57] LABS: BASOPHILS # (AUTO) 0.1 K/uL (0.0-8.0); BASOPHILS % (AUTO) 0.8 % (0.0-2.0); EOSINOPHILS # (AUTO) 0.7 K/uL (0.0-0.7); EOSINOPHILS % (AUTO) 6.3 % (0.0-7.0); HEMATOCRIT 42.1 % (36.7-47.1); HEMOGLOBIN 14.3 g/dL (12.5-16.3); LYMPHOCYTES # (AUTO) 3.3 K/uL (20.0-40.0); LYMPHOCYTES % (AUTO) 29.6 % (20.5-51.5); MEAN CORPUSCULAR HEMOGLOBIN 28.8 uug (23.8-33.4); MEAN CORPUSCULAR HGB CONC 34 g/dL (32.5-36.3); MEAN CORPUSCULAR VOLUME 84.9 fL (73.0-96.2); MONOCYTES # (AUTO) 1.2 K/uL (2.0-10.0); MONOCYTES % (AUTO) 10.3 % (0.0-11.0); NEUTROPHILS # (AUTO) 5.9 K/uL (1.8-8.9); PLATELET COUNT (AUTO) 219 K/uL (152-348); RED BLOOD CELL COUNT(AUTO) 4.95 MIL/uL (4.06-5.63); WHITE BLOOD COUNT (AUTO) 11.2 K/uL (3.6-10.2)
[2017-10-02 22:16] LABS: ALANINE AMINOTRANSFERASE 29 U/L (16-63); ALKALINE PHOSPHATASE 96 U/L (50-136); AMYLASE 18 U/L (25-115); ASPARTATE AMINOTRANSFERASE 19 U/L (15-37); BILIRUBIN,TOTAL 0.5 mg/dL (0.2-1.0); CARBON DIOXIDE 29 mmol/L (21-32); CHLORIDE 102 mmol/L (98-107); CREATININE 1.1 mg/dL (0.6-1.3); GLUCOSE 115 mg/dL (74-106); MAGNESIUM 1.5 mg/dL (1.8-2.4); POTASSIUM 3.8 mmol/L (3.5-5.1); TOTAL PROTEIN, SERUM 6.7 g/dL (6.4-8.2); UREA NITROGEN, BLOOD 10 mg/dL (7-18)
[2017-10-02 22:17] LABS: ETHANOL < 3 MG/DL (0-0)
--- NOTE | 2017-10-03 | NUR ---
VITALS REFUSED, COWS/CIWA DEFERRED 0000 vitals refused. COWS/CIWA deferred d/t pt lying in bed with eyes closed noted to be asleep. Breathing is even and unlabored, safety measures in place. Will continue to monitor.
--- NOTE | 2017-10-03 04:00 | NUR ---
VITALS REFUSED, COWS/CIWA DEFERRED 0400 vitals refused. COWS/CIWA deferred d/t pt lying in bed with eyes closed noted to be asleep. Breathing is even and unlabored, safety measures in place. Will continue to monitor.
--- NOTE | 2017-10-03 07:02 | NUR ---
END OF SHIFT Pt is a 22 year old male admitted on 10/02/17 for ETOH, Benzodiazepine, Opiate, Methamphetamine, Cocaine and Cannabis withdrawal. Pt remains alert and oriented x4. He was noted with anxiety, restlessness, agitation, mild pins and needles sensation, mild visual hallucination, and irritability during the shift. He is scheduled to start a 5 day Phenobarbital and 5 day Subutex taper today. At 2033 he received PRN Valium for CIWA:17. He slept a total of 5 hrs, Intake: 1,575mL, Void: x1, BM:0, CIWA: 11. Breathing is even and unlabored, safety measures in place. Will endorse to AM shift.
--- NOTE | 2017-10-03 07:05 | NUR ---
Start Of Shift Report received from date night caregiver nurse. Pt is a 22 year old male admitted on 10/02/17 for ETOH, Benzodiazepine, Opiate, Methamphetamine, Cocaine and Cannabis withdrawal. Per date night caregiver nurse pt's last CIWA was 11 and COWS was a 6. Pt is continues his 5 day Phenobarbital and 5 Day Subutex tapers. Upon start of shift pt noted laying in his bed with his eyes closed resting, breathing even and unlabored. When greeted pt stated. When are my medications due, Im getting too sick . Pt's room appears unorganized and messy, pt has water, soda bottles and candy wraps thrown around the room, there is candy all over the floor. Pt appears anxious, sweaty and flushed. During assessment, pt is AOx3. Lung sounds clear bilaterally. Radial pulse is regular and non-bounding. Abdomen soft and non-tender. Pt's skin is warm and intact. pt denies any pain at the moment. Encouraged pt to drink plenty of fluids to keep hydrated and help the detox process. Pt received PRN Valium 20mg last night, for withdrawal symptoms which was effective per date night caregiver nurse. Bed in lowest position. Side rails up x2. Call light functioning and within reach. All needs attended and met. Will continue to monitor.
[2017-10-03 08:00] VITALS: BP 114/71
[2017-10-03] MEDS ORDERED: TUBERCULIN,PURIF.PROT.DERIV. 5 TU/0.1 ML TEST ID ONE (09:00)
[2017-10-03] MEDS: OXCARBAZEPINE 150 MG TABLET PO SCH ×2 (09:20→20:53)
[2017-10-03] MEDS: FOLIC ACID 1 MG TABLET PO SCH (09:20)
[2017-10-03] MEDS: PHENOBARBITAL 60 MG TABLET PO SCH ×4 (09:20→20:54)
[2017-10-03] MEDS: GABAPENTIN 300 MG CAPSULE PO SCH ×3 (09:20→20:53)
[2017-10-03] MEDS: MULTIVITAMINS,THERAPEUTIC TABLET PO SCH (09:20)
[2017-10-03] MEDS: VALACYCLOVIR HCL 500 MG TABLET PO SCH (09:20)
[2017-10-03] MEDS: THIAMINE HCL 100 MG TABLET PO SCH (09:20)
[2017-10-03] MEDS: BUPRENORPHINE HCL 2 MG TAB.SUBL SL SCH ×4 (09:21→20:54)
[2017-10-03] MEDS ORDERED: MAGNESIUM OXIDE 400 MG TABLET PO ONE ×2 (09:45→21:00)
[2017-10-03 12:00] VITALS: BP 148/83
[2017-10-03] MEDS: DIAZEPAM 10 MG TABLET PO PRN ×3 (13:53→23:51)
--- NOTE | 2017-10-03 13:53 | NUR ---
PRN MEDICATION Pt c/o withdrawal symptoms, presented with sweats, runny nose, agitation and anxiety with a CIWA score of 12 pt was given a PRN Valium 10mg per MD order, all needs met will continue to monitor pt.
--- NOTE | 2017-10-03 14:00 | NUR ---
Client was prompted to attend group counseling sessions and client agreed to do so.
--- NOTE | 2017-10-03 14:53 | NUR ---
PRN REASSESSMENT Medication effective pt reported a decrease in anxiety, stated " I feel a lot better now" pt no longer had a runny nose. all needs met will continue to monitor patient.
[2017-10-03 16:00] VITALS: BP 103/65
--- NOTE | 2017-10-03 18:48 | NUR ---
PRN MEDICATION Pt c/o withdrawal symptoms, presented with sweats, runny nose, agitation and anxiety with a CIWA score of 13 pt was given a PRN Valium 10mg per MD order, all needs met will continue to monitor pt.
--- NOTE | 2017-10-03 19:13 | NUR ---
End of Shift Report given to shift coordinator nurse, Plan of care followed, Vital signs monitored closely Q4H. Withdrawals symptoms were closely monitored, medications given as schedule. Initial CIWA 14 COWS 12. Pt encouraged adequate PO fluid intake as tolerated. Pt presented with sweats flushed face hallucinations anxiety and tremors during the day. Pt received all of his scheduled medications. Pt received PRN Valium 10mg X2 for CIWA of 12 and 13. Last CIWA was a 13. Pt reported that the phenobarb and Subutex have been working well at controlling his withdrawal symptoms. Pt ate all of his meals. Pt attended all the groups and activities to learn new coping skills to prevent relapse. Pt denies any SI/HI. All safety measures in place, bed in lowest locked position, call light within reach. All needs met and attended.
--- NOTE | 2017-10-03 19:30 | NUR ---
START OF SHIFT Received 22 year old male patient admitted on 10/02/17 for ETOH, Benzodiazepine, Heroin, Meth, Cocaine and Marijuana withdrawal. Pt is alert and oriented x4. Pt is noted with anxiety, restlessness, agitation, irritability, fatigue, flushed face, runny nose, teary eyes, restless legs, and tingling on bilateral fingers. He continues on a 5 day Subutex and 5 day Phenobarbital taper and is tolerating well. Per endorsement, pt received PRN Valium. Last COWS:15, CIWA:13. Breathing is even and unlabored, safety measures in place. Will continue to monitor.
[2017-10-03 20:00] VITALS: BP 111/75
[2017-10-03] MEDS: MIRTAZAPINE 15 MG TABLET PO SCH (20:53)
[2017-10-03] MEDS: QUETIAPINE FUMARATE 25 MG TABLET PO PRN (22:34)
--- NOTE | 2017-10-03 22:34 | NUR ---
PRN SEROQUEL Pt complains of difficulty sleeping. PRN Seroquel administered as ordered for sleep. Safety measures in place. Will monitor effectiveness.
--- NOTE | 2017-10-03 23:34 | NUR ---
PRN SEROQUEL REASSESSMENT PRN medication ineffective. Pt is still awake, appears drowsy and reports he is ready to sleep soon. Safety measures in place. Will monitor.
[2017-10-03 23:51] VITALS: BP 124/84
--- NOTE | 2017-10-03 23:51 | NUR ---
PRN VALIUM Pt complains of increased anxiety, agitation, and restlessness. Pt noted to be going up and down to smoke multiple times and pacing back and forth from his room to the nurses station. CIWA:15. PRN Valium administered as ordered. Safety measures in place. Will monitor.
--- NOTE | 2017-10-04 00:51 | NUR ---
PRN VALIUM REASSESSMENT PRN medication effective. Pt is lying in bed with eyes closed and is asleep. Breathing is even and unlabored, safety measures in place. Will monitor.
--- NOTE | 2017-10-04 04:15 | NUR ---
VITALS REFUSED, COWS/CIWA DEFERRED 0400 vitals refused. COWS/CIWA deferred d/t pt lying in bed with eyes closed noted to be asleep. Breathing is even and unlabored, safety measures in place. Will monitor.
--- NOTE | 2017-10-04 07:07 | NUR ---
END OF SHIFT Pt is a 22 year old male patient admitted on 10/02/17 for ETOH, Benzodiazepine, Heroin, Meth, Cocaine and Marijuana withdrawal. He remains alert and oriented x4. He was noted with anxiety, restlessness, agitation, irritability, fatigue, flushed face, runny nose, teary eyes, and tingling on bilateral fingers during the shift. Pt noted to be hoarding drinks in his room with trash on the floor. He continues on a 5 day Subutex and 5 day Phenobarbital taper and is tolerating well. At 2234 he received PRN Seroquel. At 2351 he received PRN Valium. He slept a total of 5 hrs, Intake: 1,400mL, Void: x1, BM:0. Per endorsement, pt received PRN Valium. Last COWS:14, CIWA:15 at 2351. Breathing is even and unlabored, safety measures in place. Will endorse to AM shift.
--- NOTE | 2017-10-04 07:30 | NUR ---
START OF SHIFT Pt 22 y/o male admitted for xanax, etoh, heroin, cocaine, meth withdrawal. Pt received in room on bed with eyes closed resting, but easily arousable to name. Pt alert and oriented to name, place, and time. Perrla. Skin warm and moist to touch. Respirations even and unlabored. Bilateral hand tremors noted. Pt appears disheveled. Clothes and empty drink bottles scattered throughout the room. Pt restless, fidgety. Pt with c/o "skin crawling" this morning. Encouraged to maintain hygiene. It was reported that pt slept for 5 hours last night.Pt is on a 5 day phenobarbital taper and is on day 2. Pt is also on a 5 day subutex taper and is on day 2. Last cows=14 ciwa=15 @ 0000. Bed on lowest position with side rails x2 up for safety. Call light within reach.
[2017-10-04 08:00] VITALS: BP 123/66
[2017-10-04 08:06] LABS: HEPATITIS B SURFACE AG Negative (Negative)
[2017-10-04 08:26] LABS: BASOPHILS # (AUTO) 0.1 K/uL (0.0-8.0); BASOPHILS % (AUTO) 0.8 % (0.0-2.0); EOSINOPHILS # (AUTO) 0.9 K/uL (0.0-0.7); EOSINOPHILS % (AUTO) 11.6 % (0.0-7.0); HEMOGLOBIN 14.2 g/dL (12.5-16.3); LYMPHOCYTES # (AUTO) 3.3 K/uL (20.0-40.0); LYMPHOCYTES % (AUTO) 44.1 % (20.5-51.5); MEAN CORPUSCULAR HEMOGLOBIN 28.7 uug (23.8-33.4); MEAN CORPUSCULAR HGB CONC 34 g/dL (32.5-36.3); MEAN CORPUSCULAR VOLUME 84.8 fL (73.0-96.2); MONOCYTES # (AUTO) 0.8 K/uL (2.0-10.0); MONOCYTES % (AUTO) 11.4 % (0.0-11.0); NEUTROPHILS # (AUTO) 2.4 K/uL (1.8-8.9); NEUTROPHILS % (AUTO) 32.1 % (38.5-71.5); PLATELET COUNT (AUTO) 216 K/uL (152-348); RED BLOOD CELL COUNT(AUTO) 4.95 MIL/uL (4.06-5.63); WHITE BLOOD COUNT (AUTO) 7.4 K/uL (3.6-10.2)
[2017-10-04 08:41] LABS: MAGNESIUM 1.8 mg/dL (1.8-2.4); POTASSIUM 3.9 mmol/L (3.5-5.1)
[2017-10-04] MEDS: VALACYCLOVIR HCL 500 MG TABLET PO SCH (08:44)
[2017-10-04] MEDS: BUPRENORPHINE HCL 2 MG TAB.SUBL SL SCH ×3 (08:44→20:21)
[2017-10-04] MEDS: OXCARBAZEPINE 150 MG TABLET PO SCH ×2 (08:44→20:22)
[2017-10-04] MEDS: MULTIVITAMINS,THERAPEUTIC TABLET PO SCH (08:44)
[2017-10-04] MEDS: FOLIC ACID 1 MG TABLET PO SCH (08:44)
[2017-10-04] MEDS: GABAPENTIN 300 MG CAPSULE PO SCH ×3 (08:44→20:22)
[2017-10-04] MEDS: THIAMINE HCL 100 MG TABLET PO SCH (08:44)
[2017-10-04] MEDS ORDERED: PHENOBARBITAL 60 MG TABLET PO SCH (09:00)
[2017-10-04] MEDS: METHOCARBAMOL 750 MG TABLET PO PRN ×2 (10:05→20:22)
[2017-10-04] MEDS: IBUPROFEN 600 MG TABLET PO PRN (10:05)
[2017-10-04] MEDS: DIAZEPAM 10 MG TABLET PO PRN ×2 (10:05→18:13)
--- NOTE | 2017-10-04 10:08 | NUR ---
PRN Pt with ciwa=15. Valium 10mg po prn per MD order given and tolerated well. Addendum: 10/05/17 at 1002 by TRACY JARAMILLO RN additional Pt restless in room, very fidgety. Bilateral hand tremors noted. Pt very irritable and with c/o headaches.
--- NOTE | 2017-10-04 10:09 | NUR ---
PRN Pt states has body aches 6/10. Robaxin po prn per MD order given and tolerated well.
--- NOTE | 2017-10-04 10:10 | NUR ---
PRN Pt states has headache 5/10. Motrin po prn per MD order given and tolerated well.
--- NOTE | 2017-10-04 11:08 | NUR ---
PRN EVAL pt with ciwa=8.
--- NOTE | 2017-10-04 11:09 | NUR ---
PRN CHARLES Pt observed on bed in room watching television.
--- NOTE | 2017-10-04 11:10 | NUR ---
ARMINDA SOTO Pt observed in room on bed watching television.
[2017-10-04 12:00] VITALS: BP 98/61
[2017-10-04] MEDS: DIAZEPAM 10 MG TABLET PO SCH ×2 (14:17→20:22)
[2017-10-04 16:00] VITALS: BP 111/64
--- NOTE | 2017-10-04 18:16 | NUR ---
PRN Pt with ciwa=11. Valium 10 mg po prn per MD order given and tolerated well. Addendum: 10/05/17 at 0954 by TRACY JARAMILLO RN additional Pt restless, observed pacing hallways and room. Pt irritable and with pressured speech noted.
--- NOTE | 2017-10-04 18:45 | NUR ---
END OF SHIFT Pt 22 y/o male admitted for xanax, etoh, heroin, cocaine, meth withdrawal. Pt alert and oriented to name, place, and time. Perrla. Skin warm and moist to touch. Respirations even and unlabored. Bilateral hand tremors noted. Pt disheveled and unkempt. Clothes and food wrappings scattered throughout the room. Encouraged to maintain hygiene. Pt anxious and restless throughout the morning, could not sit still, very fidgety in bit. Pt isolative to room throughout the day. Pt did not attend group activity. Pt was seen by MD today. Pt medication compliant and tolerated well. No ASE noted. Pt is on a 5 day subutex taper and is on day 2. Pt was on a 5 day Phenobarbital taper , but got changed to valium taper and is on day 2. Pt with complaints of body aches and generalized pain this morning, and was given Robaxin and motrin po prn per MD order was given and tolerated well. Cows=15@0800, 11@1200, and 11@1600. Ciwa=15@0800, 11@1200, and 11@1600. Bed on lowest position with side rails x 2 up for safety. Call light within reach.
--- NOTE | 2017-10-04 19:01 | NUR ---
PRN EVAL Pt with ciwa =7.
--- NOTE | 2017-10-04 19:15 | NUR ---
Start of Shift Note: Patient is a 22 y.o male admitted on 10/02/17 for medically supervised withdrawal from ETOH, Xanax and Heroin use. He is alert & oriented x4. Upon assessment, patient appears disheveled, unkempt with dirty fingernails noted. Room is cluttered with empty bottles and food. He presented with anxiety, agitation, sweating, chills, restlessness, fine tremors, 6/10 body aches, nausea & he reports mild visual disturbances I am seeing spots, & feelings of pins & needles & tingling sensation on skin. Patient is on a 5-day Subutex and 5-day Valium taper and tolerating well. Per endorsement, he received PRN Valium 2x, Robaxin & Motrin during the day and were effective per report. Last CIWA 7. Encourage pt to increase fluid intake & encourage participation in group therapy to prevent relapse. Educated patient of current plan of care for the night and medication regimen. Safety precaution in place. Bed locked in lowest position. Both side rails up. Call light within pt's reach. Will continue to monitor patient.
[2017-10-04 20:00] VITALS: BP 130/83
[2017-10-04] MEDS: CLONIDINE HCL 0.1 MG TABLET PO SCH (20:22)
--- NOTE | 2017-10-04 20:22 | NUR ---
PRN Robaxin Patient complained of 6/10 generalized body aches. PRN Robaxin administered as ordered. Will monitor for effectiveness of medication.
--- NOTE | 2017-10-04 21:22 | NUR ---
PRN Reassessment PRN medication effective. Pt verbalize decreased in pain from 6/10 to 4/10. Pt noted to be more comfortable at this time. Safety measures in place. Will continue to monitor patient.
[2017-10-04] MEDS: MIRTAZAPINE 15 MG TABLET PO SCH (21:59)
[2017-10-04] MEDS: QUETIAPINE FUMARATE 25 MG TABLET PO PRN (21:59)
--- NOTE | 2017-10-04 21:59 | NUR ---
PRN Seroquel Patient complains of inability to fall asleep. PRN Seroquel administered as ordered. Will continue to monitor patient.
--- NOTE | 2017-10-04 22:59 | NUR ---
PRN Reassessment PRN medication effetcive. Patient asleep in bed a this time and appears comfortable. safety measures in place. Will continue to monitor patient.
--- NOTE | 2017-10-05 07:07 | NUR ---
End of Shift Note: Patient is a 22 y.o male admitted on 10/02/17 for medically supervised withdrawal from ETOH, Xanax and Heroin use. Pt remains alert & oriented x4. During my shift, he presented with anxiety, agitation, sweating, chills, restlessness, fine tremors, myalgia, nausea, mild tactile & visual disturbances. He appears disheveled and unkempt, encourage pt to maintain good proper hygiene. Pt continues on his Valium & Subutex taper and tolerating well. Last COWS 12 CIWA 11. He received PRN Robaxin for body aches and Seroquel for sleep and were effective. Continue to closely monitor patient. Vitals noted WNL and will be closely monitored. He was able to sleep for a total of 6 hours. Fluid intake: 1547 ml, Voided 3x with 1x bowel movement. Continue to encourage pt to participate in group therapy and to increase fluid intake as tolerated. All needs attended & met. Safety measures in place. Will endorse pt to day shift nurse.
--- NOTE | 2017-10-05 07:18 | NUR ---
START OF SHIFT Pt 22 y/o male admitted for xanax, etoh, heroin, cocaine, methamphetamine withdrawal. Pt received in room on bed awake. Pt alert and oriented to name, place, and time. Perrla. Skin warm and moist to touch. Respirations even and unlabored. Bilateral hand tremors noted. Pt appears disheveled. Clothes scattered throughout the room. Encouraged to maintain hygiene. Pt restless this morning. It was reported that pt slept for 6 hours last night. Pt is on a 5 day valium taper and is on day 3. Pt is also on a 5 day subutex taper and is on day 3. Last cows=12 ciwa=11 @ 2100. Bed on lowest position with side rails x2 up for safety. Call light within reach.
[2017-10-05 08:00] VITALS: BP 100/62
[2017-10-05] MEDS: VALACYCLOVIR HCL 500 MG TABLET PO SCH (08:26)
[2017-10-05] MEDS: FOLIC ACID 1 MG TABLET PO SCH (08:27)
[2017-10-05] MEDS: OXCARBAZEPINE 150 MG TABLET PO SCH (08:27)
[2017-10-05] MEDS: GABAPENTIN 300 MG CAPSULE PO SCH ×3 (08:27→20:29)
[2017-10-05] MEDS: CLONIDINE HCL 0.1 MG TABLET PO SCH ×2 (08:27→20:29)
[2017-10-05] MEDS: MULTIVITAMINS,THERAPEUTIC TABLET PO SCH (08:27)
[2017-10-05] MEDS: THIAMINE HCL 100 MG TABLET PO SCH (08:27)
[2017-10-05] MEDS: DIAZEPAM 5 MG TABLET PO SCH ×3 (08:27→20:29)
[2017-10-05] MEDS ORDERED: PHENOBARBITAL 60 MG TABLET PO SCH (09:00)
[2017-10-05] MEDS ORDERED: BUPRENORPHINE HCL 2 MG TAB.SUBL SL SCH (09:00)
[2017-10-05] MEDS ORDERED: DIAZEPAM 10 MG TABLET PO PRN ×2 (11:15)
[2017-10-05] MEDS ORDERED: DIAZEPAM 5 MG TABLET PO PRN (11:15)
[2017-10-05 12:00] VITALS: BP 113/63
--- NOTE | 2017-10-05 12:33 | NUR ---
PRN Pt anxious and restless, observed pacing room. pt states feels irritable and agitated. Bilateral hand tremors noted. ciwa=12. Valium 5 mg po prn per MD order given and tolerated well.
--- NOTE | 2017-10-05 13:33 | NUR ---
PRN EVAL VALIUM Pt observed in room on bed with eyes closed resting, but easily arousable to name. Pt appears calm with no pressured speech noted. Ciwa=7.
[2017-10-05] MEDS: BUPRENORPHINE HCL 2 MG TAB.SUBL SL SCH ×3 (14:13→20:29)
[2017-10-05 16:00] VITALS: BP 108/63
--- NOTE | 2017-10-05 18:58 | NUR ---
END OF SHIFT Pt 22 y/o male admitted for xanax, etoh, heroin, cocaine, meth withdrawal. Pt alert and oriented to name, place, and time. Perrla. Skin warm and moist to touch. Respirations even and unlabored. Bilateral hand tremors noted. Pt disheveled. Clothes scattered throughout the room. Encouraged to maintain hygiene. Pt mostly isolative to room throughout the day. Pt attended group activity. Pt was seen by MD today. Pt medication compliant and tolerated well. No ASE noted. Pt is on a 5 day subutex taper and is on day 3. Pt also on a 5 day valium taper and is on day 3. Cows=12@0800, 12@1200, and 12@1600. Ciwa=10@0800, 12@1200, and 10@1600. Bed on lowest position with side rails x 2 up for safety. Call light within reach.
--- NOTE | 2017-10-05 19:15 | NUR ---
Start of Shift Note: Patient is a 22 y.o male admitted on 10/02/17 for medically supervised withdrawal from ETOH, Xanax and Heroin use. He is alert & oriented x4. He has a disheveled appearance, unkempt with dirty fingernails noted. Room is cluttered with empty bottles, food & scattered clothes throughout the room. He is anxious, agitated, with complaints of sweating, chills, restlessness, fine tremors, & 6/10 body aches. Mild visual and tactile disturbances noted. Pt stll continues to see spots and feels mild tingling sensation on skin. Patient continues on his Subutex and Valium taper and tolerating well. Per endorsement, he received PRN Valium 5mg during the day and was effective per report. Last COWS 12 CIWA 10. Encourage pt to increase fluid intake & encourage participation in group therapy to prevent relapse. Educated patient of current plan of care for the night and medication regimen. Safety precaution in place. Bed locked in lowest position. Both side rails up. Call light within pt's reach. Will continue to monitor patient.
[2017-10-05 20:00] VITALS: BP 120/70
[2017-10-05] MEDS: METHOCARBAMOL 750 MG TABLET PO PRN (20:29)
[2017-10-05] MEDS: OXCARBAZEPINE 300 MG TABLET PO SCH (20:29)
--- NOTE | 2017-10-05 20:29 | NUR ---
PRN Robaxin Patient complained of 6/10 generalized body aches. patient appears restless and anxious in bed. PRN Robaxin administered as ordered. Will continue to monitor patient.
--- NOTE | 2017-10-05 21:29 | NUR ---
PRN Reassessment Patient verbalized decreased in body aches from 6/10 to 3/10 after 1 hour of PRN administration. Pt noted walking in the hallway with no facial grimacing noted. Will continue to monitor patient.
[2017-10-05] MEDS: MIRTAZAPINE 15 MG TABLET PO SCH (22:14)
[2017-10-05] MEDS: QUETIAPINE FUMARATE 25 MG TABLET PO PRN (22:14)
--- NOTE | 2017-10-05 22:14 | NUR ---
PRN Valium & Seroquel Patient noted with increased anxiety & agitation. He is restless & unable to sit still. He is noted with headache, sweating & fine tremors. CIWA 11 noted at this time. Pt also requesting of medication to help him sleep. PRN Valium & Seroquel administered as ordered. Will monitor for effectiveness of medication.
--- NOTE | 2017-10-05 23:14 | NUR ---
PRN Reassessment Patient still awake ath this time. Patient verbalized decreased in anxiety & agitation. Pt noted walking in the hallway and appears less anxious. PRN medication effective after 1 hour of medication administration. Safety measures in place. will continue to monitor patient.
[2017-10-06] VITALS: BP 118/76
--- NOTE | 2017-10-06 07:17 | NUR ---
End of Shift Note: Continue to closely monitor patient. He remains alert & oriented x4. Pt continues to present with anxiety, agitation, sweating, chills, restlessness, fine tremors, myalgia, mild tactile & visual disturbances. He continues to be disheveled and unkempt, continue to encourage pt to maintain good proper hygiene. Pt continues on his Valium & Subutex taper and tolerating well. Last COWS 10 CIWA 11. He received PRN Robaxin for body aches, Seroquel for sleep and Valium for increase in CIWA scores. Continue to encourage pt to participate in group therapy to learn new coping skills and to prevent relapse. Vitals noted WNL and will be closely monitored. He was able to sleep for a total of 5 hours. Fluid intake: 2800 ml, Voided 2x with no bowel movement. All needs attended & met. Safety measures in place. Will endorse pt to day shift nurse.
--- NOTE | 2017-10-06 07:30 | NUR ---
START OF SHIFT Pt 22 y/o male admitted for xanax, etoh, heroin, cocaine, methamphetamine withdrawal. Pt received in room on bed with eyes closed resting, but easily arousable to name. Pt alert and oriented to name, place, and time. Perrla. Skin warm and moist to touch. Respirations even and unlabored. Bilateral hand tremors noted. Pt appears disheveled. Clothes and empty drink bottles scattered throughout the room. Encouraged to maintain hygiene. Pt restless this morning not able to lay still in bed. It was reported that pt slept for 5 hours last night. Pt is on a 5 day valium taper and is on day 4. Pt is also on a 5 day subutex taper and is on day 4. Last cows=10 ciwa=11 @ 2100. It was reported that pt received valium , seroquel , and robaxin po prn per MD order last night for insomnia, body aches, and symptoms of withdrawal from benzos. Bed on lowest position with side rails x2 up for safety. Call light within reach.
[2017-10-06 08:00] VITALS: BP 111/69
[2017-10-06] MEDS: CLONIDINE HCL 0.1 MG TABLET PO SCH ×2 (08:33→20:32)
[2017-10-06] MEDS: OXCARBAZEPINE 150 MG TABLET PO SCH (08:33)
[2017-10-06] MEDS: MULTIVITAMINS,THERAPEUTIC TABLET PO SCH (08:33)
[2017-10-06] MEDS: FOLIC ACID 1 MG TABLET PO SCH (08:33)
[2017-10-06] MEDS: GABAPENTIN 300 MG CAPSULE PO SCH ×3 (08:33→20:33)
[2017-10-06] MEDS: THIAMINE HCL 100 MG TABLET PO SCH (08:33)
[2017-10-06] MEDS: VALACYCLOVIR HCL 500 MG TABLET PO SCH (08:34)
[2017-10-06] MEDS: BUPRENORPHINE HCL 2 MG TAB.SUBL SL SCH ×3 (08:34→20:33)
[2017-10-06] MEDS: DIAZEPAM 5 MG TABLET PO SCH ×3 (08:34→20:32)
[2017-10-06] MEDS ORDERED: HYDROXYZINE PAMOATE 25 MG CAPSULE PO PRN (09:00)
[2017-10-06] MEDS ORDERED: PHENOBARBITAL 60 MG TABLET PO SCH (09:00)
[2017-10-06] MEDS ORDERED: DIAZEPAM 5 MG TABLET PO ONE (11:30)
--- NOTE | 2017-10-06 11:36 | NUR ---
ONE TIME VALIUM Pt restless and anxious. Pt observed pacing hallways and room. Clenched fists noted. Ciwa =8. MD made aware with new order for valium 5 mg po x1 dose noted and carried out.
[2017-10-06 12:00] VITALS: BP 128/68
--- NOTE | 2017-10-06 12:36 | NUR ---
PRN CHARLES REGALADO pt with ciwa=6. Pt observed walking around the unit talking with other clients.
[2017-10-06 16:00] VITALS: BP 124/72
--- NOTE | 2017-10-06 18:48 | NUR ---
END OF SHIFT Pt 22 y/o male admitted for xanax, etoh, heroin, cocaine, meth withdrawal. Pt alert and oriented to name, place, and time. Perrla. Skin warm and moist to touch. Respirations even and unlabored. Bilateral hand tremors noted. Pt disheveled. Clothes, food wrappings, and empty drink bottles scattered throughout the room. Encouraged to maintain hygiene. Pt observed mostly in recreational room throughout the day. Pt attended group activity. Pt with periods of anxiety this morning. Pt was seen by MD today. Pt medication compliant and tolerated well. No ASE noted. Pt is on a 5 day subutex taper and is on day 4. Pt also on a 5 day valium taper and is on day 4. Last cows=13 ciwa=10 @1600. Pt received valium prn per MD order this morning for ciwa=8. Bed on lowest position with side rails x 2 up for safety. Call light within reach.
--- NOTE | 2017-10-06 18:53 | NUR ---
PRN CATAPRES VISTARIL Pt states is anxious. Pt observed restless, pacing hallways with fists clenched. Pt also observed grinding teeth slightly. vistaril po prn per MD order given and tolerated well. Catapres po prn per MD order given and tolerated well.
--- NOTE | 2017-10-06 19:15 | NUR ---
Start of Shift Note: Endorsement received from day shift nurse. Patient is a 22 y.o male admitted on 10/02/17 for medically supervised withdrawal from ETOH, Xanax and Heroin use. He is alert & oriented x4. He continues to have a disheveled appearance, unkempt look with dirty fingernails noted. Room is cluttered with empty bottles, food & scattered clothes throughout the room. Encouraged to maintain hygiene. He continues to be anxious, restless & agitated. He presents with sweating, chills, fine tremors, & myalgia. Pt denies hallucinations at this time. Patient continues on his Subutex and Valium taper and tolerating well. Per endorsement, he received PRN Valium 5mg, Clonidine & Vistaril during the day. Last COWS 13 CIWA 10. Encourage pt to increase fluid intake & encourage participation in group therapy to prevent relapse. Educated patient of current plan of care for the night and medication regimen. Safety precaution in place. Bed locked in lowest position. Both side rails up. Call light within pt's reach. Will continue to monitor patient.
--- NOTE | 2017-10-06 19:53 | NUR ---
PRN Reassessment PRN medication somewhat effective. Pt verbalized slight decreased in anixety & agitation after 1 hour of PRN administration. Pt noted in the hallway and about to go to smoke. Per pt, smoking helps him with his anxiety. Will continue to monitor patient.
[2017-10-06 20:00] VITALS: BP 123/97
[2017-10-06] MEDS: OXCARBAZEPINE 300 MG TABLET PO SCH (20:32)
[2017-10-06] MEDS: MIRTAZAPINE 15 MG TABLET PO SCH (22:15)
[2017-10-06] MEDS: QUETIAPINE FUMARATE 25 MG TABLET PO PRN (22:15)
--- NOTE | 2017-10-06 22:15 | NUR ---
PRN Seroquel Patient requested medication to help him sleep. PRN Seroquel administered as ordered. Will monitor for effectiveness of medication.
[2017-10-07] VITALS: BP 94/67
--- NOTE | 2017-10-07 | NUR ---
PRN Reassessment Patient asleep at this time and appears comfortable. No shortness of breath noted. Unable to assess CIWA at this time. Safety measures in place. will continue to monitor patient.
--- NOTE | 2017-10-07 07:12 | NUR ---
End of Shift Note: Continue to closely monitor patient. Pt remains stable and vitals remains WNL. Pt continues to present with anxiety, agitation, sweating, chills, restlessness, fine tremors, & myalgia. Pt continues on his Valium & Subutex taper and tolerating well. Last COWS 12 CIWA 12. He received Seroquel for sleep during my shift. Continue to encourage pt to participate in group therapy to learn new coping skills and to prevent relapse. He was able to sleep for a total of 6 hours. Fluid intake: 855 ml, Voided 2x with no bowel movement. All needs attended & met. Safety measures in place. Will endorse pt to day shift nurse.
--- NOTE | 2017-10-07 07:40 | NUR ---
Start of shift note; Received report from night nurse. Patient is a 22 year old male admitted on 10/02/17 for ETOH/ Benzodiazepine/ Cocaine/ Methamphetamine withdrawal. Patient was placed on 4 day Valium and 5 day Subutex taper. Patient is AOX4, presented with anxiety, agitation, muscle aches, stomach cramps, restless legs. Educated patient regarding the importance of compliance to treatment and medication regime, patient verbalized understanding. Encouraged patient to participate in group therapy and activities. Patient's last COWS score is 12 and last CIWA score is 12 per endorsement. Patient received PRN Seroquel noted to be effective. Patient slept for 6 hours. All safety measures secured. Will continue to monitor patient.
[2017-10-07 08:00] VITALS: BP 98/68
[2017-10-07] MEDS ORDERED: PHENOBARBITAL 60 MG TABLET PO SCH (09:00)
[2017-10-07] MEDS: VALACYCLOVIR HCL 500 MG TABLET PO SCH (09:20)
[2017-10-07] MEDS: BUPRENORPHINE HCL 2 MG TAB.SUBL SL SCH ×2 (09:21→22:12)
[2017-10-07] MEDS: MULTIVITAMINS,THERAPEUTIC TABLET PO SCH (09:21)
[2017-10-07] MEDS: DIAZEPAM 5 MG TABLET PO SCH ×2 (09:21→22:12)
[2017-10-07] MEDS: GABAPENTIN 300 MG CAPSULE PO SCH ×3 (09:21→22:13)
[2017-10-07] MEDS: OXCARBAZEPINE 150 MG TABLET PO SCH (09:21)
[2017-10-07] MEDS: CLONIDINE HCL 0.1 MG TABLET PO SCH ×3 (09:21→22:12)
[2017-10-07] MEDS: THIAMINE HCL 100 MG TABLET PO SCH (09:21)
[2017-10-07] MEDS: FOLIC ACID 1 MG TABLET PO SCH (09:21)
[2017-10-07 12:00] VITALS: BP 98/61
[2017-10-07] MEDS ORDERED: BACLOFEN 10 MG TABLET PO SCH (12:00)
[2017-10-07] MEDS ORDERED: DIAZEPAM 10 MG TABLET PO SCH (12:00)
--- NOTE | 2017-10-07 12:00 | NUR ---
MD order; MD ordered one time dose of Valium 10mg PO for anxiety and s/s of withdrawals. Patient current CIWA is score is 10. Medication given as ordered.
[2017-10-07 16:00] VITALS: BP 118/68
--- NOTE | 2017-10-07 18:30 | NUR ---
End of shift note; Patient is AOX4, presented with anxiety, complaining of muscle aches, stomach cramps, and headache. Patient remained compliant with treatment plan and medication regime. Medications were effective in reducing withdrawal symptoms. Patient participated in group activities and therapies. Patient received one time dose of Valium 10mg at 1200 for anxiety per MD order noted to be effective. Patient's last COWS score is 10 and last CIWA score is 8. All safety measures secured. Met all needs.
[2017-10-07] MEDS: IBUPROFEN 600 MG TABLET PO PRN (18:36)
--- NOTE | 2017-10-07 18:36 | NUR ---
PRN medication; Patient is complaining of headache, PRN Motrin 600mg PO given for pain/headache. Will continue to monitor for effectiveness of medication. Will endorse to night nurse for re-assessment.
--- NOTE | 2017-10-07 19:00 | NUR ---
Start of shift note Received report from day shift nurse. Pt is a 22 yo male, A+Ox4, presenting to [facility] for ETOH/Benzo/Opiate/Meth/cocaine withdrawal. Pt noted to be anxious, agitated, restless, and sweaty. Pt has HX of Anxiety, depression, seizure, Hepatitis C, Herpes I, Insomnia, and HTN which will be monitored during shift. Pt is on 5 day Subutex and 4 day Valium tapers, tolerated well. Respirations even and unlabored. Will continue to monitor.
[2017-10-07 20:10] VITALS: BP 116/65
[2017-10-07] MEDS: BACLOFEN 10 MG TABLET PO SCH (22:12)
[2017-10-07] MEDS: OXCARBAZEPINE 300 MG TABLET PO SCH (22:13)
[2017-10-07] MEDS: MIRTAZAPINE 15 MG TABLET PO SCH (22:13)
[2017-10-07] MEDS: QUETIAPINE FUMARATE 25 MG TABLET PO PRN (22:30)
--- NOTE | 2017-10-07 22:30 | NUR ---
PRN Seroquel Pt c/o inability to sleep and requested for PRN Seroquel. Medication given and tolerated well. Will reassess within 1 HR. Will continue to monitor.
--- NOTE | 2017-10-07 23:20 | NUR ---
PRN Seroquel Reassessment Medication effective. Pt is resting well in bed. No s/s of ASE noted at this time. Respirations even and unlabored. Will continue to monitor.
[2017-10-08 00:08] VITALS: BP 125/76
[2017-10-08 04:12] VITALS: BP 125/79
--- NOTE | 2017-10-08 07:00 | NUR ---
End of shift note Pt was continuously noted with anxiety, agitation, and restlessness. Pt remained in room for majority of shift except to go smoke on smoking patio and to get food from kitchen. Pt remained cooperative and compliant with all aspects of treatment. Pt was given PRN Seroquel @2230. Pt is on 5 day Subutex and 4 day Valium tapers, tolerated well. Pt slept for a total of 5 HRS. Last COWS: 10 and Last CIWA: 10 @0400. Respirations even and unlabored. Will endorse to day shift nurse.
--- NOTE | 2017-10-08 07:27 | NUR ---
START OF SHIFT Pt is 22 yr old male, AA&Ox4. Pt was admitted on 10/02/17 for ETOH/Benzo/Opiate withdrawal and is on 4 day Valium taper and 5 day Subutex taper as ordered. Medication stefan well. Received report from machinist 2nd shift nurse. Pt received Seroquel PRN for sleep. medication was effective. pt slept for 5 hrs. Last COWS score was 10 and CIWA score was 10 at 0400. Pt is currently c/o anxiety but is able to cope with anxiety level. Skin is intact, warm and moist to touch. Pt is on fall and seizures precautions. Call light is within reach. Will continue to monitor. Addendum: 10/08/17 at 0832 by MADISON ANG LVN Pt is noted with flat affect. Pt's room is observed with open food wrappers and crumbs on the floor and spilled juice on the blanket. Will continue to monitor.
[2017-10-08 08:00] VITALS: BP 115/63
[2017-10-08] MEDS: THIAMINE HCL 100 MG TABLET PO SCH (08:24)
[2017-10-08] MEDS: OXCARBAZEPINE 300 MG TABLET PO SCH ×2 (08:24→20:42)
[2017-10-08] MEDS: VALACYCLOVIR HCL 500 MG TABLET PO SCH (08:24)
[2017-10-08] MEDS: GABAPENTIN 300 MG CAPSULE PO SCH ×4 (08:24→20:42)
[2017-10-08] MEDS: CLONIDINE HCL 0.1 MG TABLET PO SCH ×3 (08:24→20:42)
[2017-10-08] MEDS: MULTIVITAMINS,THERAPEUTIC TABLET PO SCH (08:24)
[2017-10-08] MEDS: FOLIC ACID 1 MG TABLET PO SCH (08:25)
--- NOTE | 2017-10-08 08:25 | NUR ---
PRN GIVEN Pt c/o abdominal cramping and nausea. No episodes of emesis was reported. Zofran 4mg SL PRN and Bentyl 20mg PO PRN was given as ordered. Medication stefan well. Encouraged increase fluid intake. Will continue to monitor
[2017-10-08] MEDS: BACLOFEN 10 MG TABLET PO SCH ×3 (08:26→20:42)
[2017-10-08] MEDS ORDERED: BUPRENORPHINE HCL 2 MG TAB.SUBL SL SCH (09:00)
[2017-10-08] MEDS ORDERED: DIAZEPAM 5 MG TABLET PO SCH (09:00)
--- NOTE | 2017-10-08 09:25 | NUR ---
PRN RE-ASSESSMENT Bentyl PRN and Zofran PRN was effective. Pt denies any n/v or abdominal cramping. Encouraged increase fluid intake. Will continue to monitor.
[2017-10-08 12:00] VITALS: BP 119/64
[2017-10-08 16:00] VITALS: BP 143/79
[2017-10-08] MEDS ORDERED: IBUP-1955 PO (16:12)
[2017-10-08] MEDS ORDERED: GABA-534 PO (16:12)
[2017-10-08] MEDS ORDERED: DIPH50CA37 PO (16:12)
[2017-10-08] MEDS ORDERED: OXCA300T4 PO (16:12)
[2017-10-08] MEDS ORDERED: CLON0.1T14 PO (16:12)
[2017-10-08] MEDS ORDERED: DICY20TA28 PO (16:12)
[2017-10-08] MEDS ORDERED: METH-406 PO (16:12)
[2017-10-08] MEDS ORDERED: HYDR-3895 PO (16:12)
--- NOTE | 2017-10-08 18:56 | NUR ---
END OF SHIFT Pt is 22 yr old male, AA&Ox4. Pt was admitted on 10/02/17 for ETOH/Benzo/Opiate withdrawal and is on 4 day Valium taper and 5 day Subutex taper as ordered. Medication stefan well. Pt has been cooperative with medication regimen and plan of care. Pt was observed attending group therapy during the day. Pt c/o anxiety, muscle aches, nausea, abdominal cramping and sweats/chills. Pt received Zofran 4mg SL PRN and Bentyl 20mg PO PRN at 0825. Medication was effective. Skin is intact, warm and moist to touch. Pt was encouraged increase fluid intake for hydration. Pt is to be discharged tomorrow on 10/09/17 to [facility]. Last COWS score was 5 and CIWA score was 7 at 1600. Safety precautions observed. Call light is within reach. Endorsed to overnight associate nurse to continue with care.
--- NOTE | 2017-10-08 19:15 | NUR ---
Start of Shift Note: Endorsement received from day shift nurse. Patient is a 22 y.o male admitted on 10/02/17 for medically supervised withdrawal from ETOH, Xanax and Heroin use. Patient completed his Valium and Subutex taper and is scheduled to be discharge tomorrow. He remains alert & oriented x4. Patient c/o of anxiety d/t being discharge tomorrow. Pt is worried about his anxiety & that it might cause him to relapse. Patient educated of relaxation technique and encourage to continue attending groups to learn coping skills to prevent relapse. Per endorsement, he received PRN Bentyl for stomach cramps and Zofran for nausea during the day. Last COWS 5 CIWA 7. Educated patient of current plan of care for the night and medication regimen. Safety precaution in place. Bed locked in lowest position. Both side rails up. Call light within pt's reach. Will continue to monitor patient.
[2017-10-08 20:00] VITALS: BP 116/65
[2017-10-08] MEDS: QUETIAPINE FUMARATE 25 MG TABLET PO PRN (20:42)
[2017-10-08] MEDS: MIRTAZAPINE 15 MG TABLET PO SCH (20:42)
--- NOTE | 2017-10-08 20:42 | NUR ---
PRN Seroquel Patient requested medication to help him sleep. PRN Seroquel administered as ordered. Pt tolerated medications well. Will monitor for effectiveness of medication.
--- NOTE | 2017-10-08 21:42 | NUR ---
PRN Reassessment Patient still awake at this time. Pt in bed watching TV and he appears drowsy. Will continue to monitor patient.
--- NOTE | 2017-10-09 07:14 | NUR ---
End of Shift Note: Patient remain alert & oriented x4. Patient completed his Valium and Subutex taper and is scheduled to be discharge today. Patient continues to have anxiety d/t discharge. Pt encourage to continue to attend groups to learn coping skills, reassurance was provided. Pt remain stable at this time and vitals noted WNL. Last COWS 5 CIWA 8. Pt received PRN Seroquel for sleep and was effective. Pt was able to sleep for a total of 6 hours. Fluid intake is 1564ml Voided 2x with no bowel movement noted. All needs attended & met. Safety measures in place. Will endorse pt to day shift nurse.
--- NOTE | 2017-10-09 07:33 | NUR ---
START OF SHIFT Pt is 22 yr old male, AA&Ox4. Pt was admitted on 10/02/17 for ETOH/Benzo/Opiate withdrawal and has completed a 4 day Valium taper and 5 day Subutex taper as ordered. Medication stefan well. Received report from production supervisor off shift nurse. Pt received Seroquel PRN for sleep. medication was effective. pt slept for 7 hrs. Last COWS score was 5 and CIWA score was 8 during the night. Pt is currently in bed sleeping with respirations even and unlabored. Skin is intact, warm and moist to touch. Pt's room is noted with multiple open bottle of juice and water on his bedside table and multiple opened food wrappers. Pt is to be discharged today to [facility]. Pt is on fall and seizures precautions. Call light is within reach. Will continue to f/u
[2017-10-09 08:00] VITALS: BP 131/70
[2017-10-09 08:22] VITALS: BP 131/70
[2017-10-09] MEDS: MULTIVITAMINS,THERAPEUTIC TABLET PO SCH (08:22)
[2017-10-09] MEDS: BACLOFEN 10 MG TABLET PO SCH (08:22)
[2017-10-09] MEDS: OXCARBAZEPINE 300 MG TABLET PO SCH (08:22)
[2017-10-09] MEDS: THIAMINE HCL 100 MG TABLET PO SCH (08:22)
[2017-10-09] MEDS: CLONIDINE HCL 0.1 MG TABLET PO SCH (08:22)
[2017-10-09] MEDS: FOLIC ACID 1 MG TABLET PO SCH (08:22)
[2017-10-09] MEDS: GABAPENTIN 300 MG CAPSULE PO SCH (08:23)
[2017-10-09] MEDS: VALACYCLOVIR HCL 500 MG TABLET PO SCH (08:25)
--- NOTE | 2017-10-09 09:45 | NUR ---
DISCHARGE NOTE Pt is a 22 yr old male, AA&Ox4. pt was admitted on 10/02/17 for Benzo/ETOH/Opiate withdrawal and completed a 4 day Valium and 5 day Subutex taper as ordered, medication was stefan well. Pt has been cooperative with medication regimen and plan of care. Pt c/o anxiety due to discharged but is able to cope with anxiety level. No SI/HI noted. Pt was educated on discharged summary and prescriptions. Pt was able to verbalize understanding. Pt was escorted off the unit at 0938 in stable condition. Pt is going to [facility] for continuation of care. Pt left with all belongs, no valuables or home medications was brought to the unit.
== END 2017-10-09 09:38 | disposition other institution (70) | DRG 895 ==
LOC: SRC 18:52
PROVIDERS: ADMIT Internal Medicine; ATTEND Internal Medicine
PROC: HZ2ZZZZ Detoxification Services for Substance Abuse Treatment (ICD-10-PCS; principal; 2017-10-02)
PROC: HZ31ZZZ Individual Counseling for Substance Abuse Treatment, Behavioral (ICD-10-PCS; 2017-10-03)
PROC: HZ41ZZZ Group Counseling for Substance Abuse Treatment, Behavioral (ICD-10-PCS; 2017-10-06)
DX: F10.230 Alcohol dependence with withdrawal, uncomplicated (principal); F13.232 Sedative, hypnotic or anxiolytic dependence with withdrawal with perceptual disturbance; F11.23 Opioid dependence with withdrawal; Y90.0 Blood alcohol level of less than 20 mg/100 ml; Z86.74 Personal history of sudden cardiac arrest; Z91.5 Personal history of self-harm; Z91.89 Other specified personal risk factors, not elsewhere classified; G47.00 Insomnia, unspecified; Z81.1 Family history of alcohol abuse and dependence; F17.210 Nicotine dependence, cigarettes, uncomplicated; F41.0 Panic disorder [episodic paroxysmal anxiety]; J45.20 Mild intermittent asthma, uncomplicated; F12.90 Cannabis use, unspecified, uncomplicated; F15.10 Other stimulant abuse, uncomplicated; B19.20 Unspecified viral hepatitis C without hepatic coma; B00.9 Herpesviral infection, unspecified; F32.9 Major depressive disorder, single episode, unspecified; E83.42 Hypomagnesemia; R73.9 Hyperglycemia, unspecified; I15.9 Secondary hypertension, unspecified; D72.823 Leukemoid reaction
CPT/HCPCS: 36415; 70030-TC; 80307; 80324; 80346; 80349; 80353; 80361; 83735; 85025; 86592; 86705; 86803; 87340; 87806; G0480; J2405; J3411; J8499; Q0162